=== PATIENT | female | born 1995 | race Caucasian/White ===

== ENCOUNTER 2023-07-21 03:41 | Emergency (ER) | payer OTHER, SELFPAY ==
[2023-07-21 03:42] VITALS: BP 149/86; PULSE 79; RESP 16; TEMP 36.6; O2SAT 97; BMI 41.6
--- NOTE | 2023-07-21 03:55 | EX.ED.DYSGE1 ---
HPI History of Present Illness Chief Complaint: Dental Informant: patient Onset/Context/Timing Onset: Hours (several) Context: Gradual Onset Timing: Continuous Narrative Narrative: Patient states she is having pain in her right face radiating back into her ear and a little bit into her head. No fevers or chills. This started gradually this evening. She is concerned it is potentially dental in etiology because earlier this past day, she had a dental cleaning done. It was uneventful and not painful. She presented 4 AM because she cannot sleep. She states her ear hurts a little. She denies any nausea or vomiting. She has had cold symptoms for the past week without dyspnea or fever/chills or severe body aches. This includes nasal congestion. She has been occasionally taking oral decongestants, and tonight she took ibuprofen and aspirin and Benadryl which did not help any of this so she came in. She has had some minor rhinorrhea but nothing that is purulent or bloody. [facility] Medical History Chronic neck and back pain Fatigue Shortness of breath Home Medications acetaminophen 325 mg capsule (Tylenol) 325 mg PO Q6H PRN 07/03/18 [History Last Taken Unknown] etonogestrel 0.12 mg-ethinyl estradiol 0.015 mg/24 hr vaginal ring (NuvaRing) 1 vag ring vaginal Q4W 07/03/18 [History Last Taken Unknown] lorazepam 0.5 mg tablet 0.5 mg PO DAILY 07/21/23 [History Last Taken Unknown] sertraline 100 mg tablet 200 mg PO DAILY 07/21/23 [History Last Taken Unknown] Allergy/AdvReac Type Severity Reaction Status Date / Time No Known Allergies Allergy Verified 07/21/23 03:47 Social History Smoking Status: Never smoker alcohol intake: current ROS ROS ED Constitutional Constitutional ED: Denies chills or fever(s) ENT ENT ED: Reports ear pain bilateral, nasal congestion and rhinorrhea; Denies sore throat Cardiovascular Cardiovascular: Denies chest pain or palpitations Respiratory/Chest Respiratory/Chest: Reports cough; Denies dyspnea Gastrointestinal Gastrointestinal: Denies abdominal pain, diarrhea, nausea or vomiting Genitourinary Genitourinary ED: Denies dysuria or hematuria Musculoskeletal Musculoskeletal: Denies myalgias or neck pain Integumentary Denies abscess or rash Neurologic Neurologic: Reports headache(s); Denies paresthesias or weakness Psychiatric Psychiatric: Denies depression or suicidal thoughts Endocrine Endocrinology: Denies polydipsia or polyuria EXAM Physical Exam Const Vital Signs: 07/21/23 03:42 Temperature 97.8 F Temperature Source Temporal Pulse Rate 79 Respiratory Rate 16 Blood Pressure 149/86 H Blood Pressure Mean 107 Pulse Ox 97 Oxygen Delivery Method Room Air Positive well nourished and well developed General Appearance ED: well developed and NAD HEENT Reports moist mucous membranes HEENT Narrative: Dentition and gingiva are normal and nontender. No trismus. No sublingual edema or tongue elevation. There is tenderness in the right maxillary sinus but not severely so. Normal on external inspection no asymmetry or swelling/abscess. I am not able to reproduce any tenderness intraorally. There is no periauricular lymphadenopathy, TMs and EACs bilaterally normal. No mastoid tenderness/swelling/erythema. No severe or asymmetric nasal turbinate edema, and no nasal purulent discharge. normocephalic and atraumatic Throat: Negative for posterior oropharynx abnormal Eyes PERRL and EOMs intact bilaterally Neck no lymphadenopathy, supple and no meningeal signs Resp normal respiratory effort and clear to auscultation bilaterally Cardio no murmurs Rate: regular rate Rhythm: regular rhythm Neuro oriented x3, CN's II-XII intact bilaterally and no sensory deficits noted Sensorium / Orientation: alert Motor Exam: strength 5/5 throughout Skin Lesions: no lesions Rashes: no rashes MDM MDM MDM Narrative Medical decision making narrative: I think the patient is having sinus pain. She is only been having symptoms for a few hours and there are no clinical findings to suggest this is acute bacterial sinusitis or that antibiotics will cure this. She is advised to attempt using nasal decongestants to unclog the exit for the maxillary sinus, and we discussed applying gentle positive pressure to try to help open the sinus and drainage which give her more immediate relief. If symptoms persist, she can follow-up with her doctor or return to the ER. Discharge Plan Triage Chief Complaint: Dental ED Provider: Ashwin Lemons Dx/Rx/DC Orders Clinical Impression: Viral URI, Pain of maxillary sinus Instructions: ED Sinus Headache Prescriptions: No Action NuvaRing 0.12-0.015 mg/24 hr ring 1 vag ring VAGINAL Q4W acetaminophen [Tylenol] 325 mg capsule 325 mg PO Q6H PRN sertraline 100 mg tablet 200 mg PO DAILY lorazepam 0.5 mg tablet 0.5 mg PO DAILY Primary Care Provider: Merrick Mai Referrals: Merrick Mai MD [Primary Care Provider] - 3-5 Days if not improving Activity Restrictions/Additional Instructions: After using nasal decongestant spray, you may hold your nose and apply gentle pressure until you feel your ears pop, hold this for a breath and often you can stent the sinuses open. This may need to be done repeatedly as needed. Do not use the decongestant spray more than 3 days in a row, up to every 12 hours. If the sinus congestion/pressure resulted from allergies, then using [id number] nasal fluticasone, which is brand-name Flonase or other names, can help but it does not work immediately since it is a steroid. Benadryl-type medications will not help with this, unless it is allergies. These medications only dry up secretions, they do not take away swelling like decongestants. Disposition Disposition: Home, Self Care
[2023-07-21] MEDS: Oxymetazoline 0.05% 1 SPRAY SPRAY.BTL 2 SPRAY NASAL (04:02)
== END 2023-07-21 04:13 | disposition home or self-care (01) ==
LOC: ED 04:12
PROVIDERS: Emergency Provider Emergency Medicine; PCP Family Medicine; Visit Provider Emergency Medicine
DX: J06.9 Acute upper respiratory infection, unspecified (principal); J34.89 Other specified disorders of nose and nasal sinuses
CPT/HCPCS: 99283

== ENCOUNTER → 2024-09-02 | Outpatient (CLI) | payer OTHER, SELFPAY ==
[2024-09-02 11:26] LABS: Absolute Lymphocyte Count 1.64 X10^3/uL (0.83-4.51); Absolute Neutrophil Count 3.8 X10^3/uL (2.0-7.7); Basophil# 0.07 X10^3/uL; Basophil% 1.1 % (0-1); Eosinophil# 0.16 X10^3/uL; Eosinophils% 2.5 % (0-5); Hematocrit 41.4 % (37-47); Lymphocyte # 1.64 X10^3/ul (0.83-4.51); Lymphocyte % 26.1 % (19-41); Mean Corp Hgb Conc 33.8 g/dL (32-36); Mean Corpuscular Hgb 27.5 pg (27.0-32.0); Mean Corpuscular Volume 81.2 fL (81-99); Mean Platelet Vol. 10.6 fl (6.2-12.0); Monocyte# 0.54 X10^3/uL; Monocyte% 8.6 % (0-10); NRBC Flagged by Analyzer 0 % (0-5); Neutrophil # 3.84 X10^3/uL (2.7-7.7); Neutrophil % 61.2 % (47-70); Platelet Count 372 K/mm3 (150-450); RBC Distribution Width CV 12.6 % (11.6-14.6); RBC Distribution Width SD 37.4 fl (35.1-43.9); White Blood Count 6.3 K/mm3 (4.4-11.0)
[2024-09-02 12:25] LABS: ALB/GLOB Ratio 1.7 RATIO (0.9-2.4); AST(SGOT) 16 U/L (<=31); Alanine Aminotransfer ALT/SGPT 12 U/L (<=34); Albumin, Serum 4.4 g/dL (3.5-5.0); Alkaline Phosphatase 74 U/L (35-104); Anion Gap 11 (5-15); BUN 10 mg/dL (4-19); BUN/Creat Ratio 13.4 RATIO (10-20); Calcium,Total 9.2 mg/dL (7.6-11.0); Carbon Dioxide 21.9 mmol/L (21.0-32.0); Chloride 108 mmol/L (98-108); Creatinine, Serum 0.73 mg/dL (0.70-1.20); EST Glomerular Filtration Rate 114 (>60); Globulin 2.6 g/dL (2.2-4.2); Glucose 101 mg/dL (70-99); Potassium 4.2 mmol/L (3.3-5.1); Sodium Level 141 mmol/L (133-145); Thyroid Stim Hormone (TSH) 0.079 uIU/mL (0.300-4.200); Total Bilirubin 0.22 mg/dL (0.00-1.30)
[2024-09-02 12:40] LABS: Cholesterol 176 mg/dL (<=200); High Density Lipoprotein 46 mg/dL; Low Density Lipoprotein Calc. 114 mg/dL; Triglycerides 84 mg/dL; Very Low Density Lipoprotein 17 mg/dL (5-40); cholesterol:hdl ratio screen 3.87
== END | disposition home or self-care (01) ==
LOC: LAB 10:42
PROVIDERS: PCP Family Medicine; Referring Provider Nurse Practitioner Family; Visit Provider Nurse Practitioner Family
DX: N97.9 Female infertility, unspecified (principal)
CPT/HCPCS: 36415; 80053; 80061; 84439; 84443; 85025

== ENCOUNTER → 2024-09-13 | Outpatient (CLI) | payer OTHER, SELFPAY ==
--- NOTE | 2024-09-13 16:29 | US_ITS ---
PROCEDURE: PELVIC W/ TRANSVAGINAL 09/13/2024 REASON FOR EXAM: INFERTILITY TECHNIQUE: Transabdominal and transvaginal pelvic ultrasound FINDINGS: Transabdominal and transvaginal imaging. The uterus measures 8.2 by 4.7 by 2.9 cm and appears within limits. 6 mm homogeneous appearing endometrial stripe. Small amount of fluid is seen within the endocervical canal. The right ovary measures 2.6 x 1.6 x 1.5 cm and appears within limits. Evidence of vascular flow is seen. Left ovary measures 4.7 x 2.8 x 1.9 cm and contains a couple of simple appearing cysts. Largest measures 2.5 x 1.6 x 1.6 cm. Evidence of ovarian vascular flow is seen. No evidence of adnexal mass. No free fluid seen. Bladder volume 756 cc. US/Pelvic w/ Transvaginal IMPRESSION: A couple of simple appearing cysts/follicles left ovary largest measures up to 2.5 cm. No free fluid seen. Reading Location: [id number]
== END | disposition home or self-care (01) ==
LOC: US 16:24
PROVIDERS: PCP Family Medicine; Referring Provider Nurse Practitioner Family; Visit Provider Nurse Practitioner Family
DX: N97.9 Female infertility, unspecified (principal)
CPT/HCPCS: 76830; 76856

== ENCOUNTER → 2024-09-20 | Outpatient (CLI) | payer OTHER, SELFPAY ==
[2024-09-21 11:07] LABS: Thyroid Stim Hormone (TSH) 0.185 uIU/mL (0.300-4.200)
[2024-09-22 04:07] LABS: PROGESTERONE 6.7 ng/mL (.)
== END | disposition home or self-care (01) ==
PROVIDERS: PCP Family Medicine; Referring Provider Nurse Practitioner Family; Visit Provider Nurse Practitioner Family
DX: Z13.29 Encounter for screening for other suspected endocrine disorder (principal); N97.9 Female infertility, unspecified
CPT/HCPCS: 36415; 84144; 84443

== ENCOUNTER 2024-10-27 22:47 | Emergency (ER) | payer OTHER, SELFPAY ==
[2024-10-27 22:47] VITALS: BP 133/88; PULSE 78; RESP 14; TEMP 36.6; O2SAT 98; BMI 41.6
--- NOTE | 2024-10-27 22:56 | ED.VIS.FEGU ---
HPI HPI - Female History of Present Illness Chief Complaint: PFSH PFSH Medical History PTSD (post-traumatic stress disorder) Depression Anxiety Chronic neck and back pain Fatigue Shortness of breath Home Medications ?Medication ?Instructions ?Recorded ?Last Taken ?Type acetaminophen 325 mg capsule 325 mg PO Q6H PRN pain 07/03/18 Unknown History (Tylenol) magnesium carb,citrate,oxide 500 mg PO DAILY 08/30/24 Unknown History (Magnesium Complex) Lactobacillus acidophilus 1 1,000 mmu cells PO QDAY 10/27/24 Unknown History billion cell capsule (Probiotic Gold Acidophilus) multivitamin no.47-iron fum 27 1 cap PO DAILY 10/27/24 Unknown History mg-folate no.1 1 mg-dha 300 mg capsule (PNV-DHA) Allergy/AdvReac Type Severity Reaction Status Date / Time No Known Allergies Allergy Verified 10/27/24 22:48 Social History adopted: No household members: spouse housing: house number of children: 0 current occupational status: employed current occupation: 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) pets and animals: Yes (Avoid litterbox) pets and animals: cat(s) and dog(s) history of recent travel: No sexually active: Yes Smoking Status: Never smoker alcohol intake: current alcohol intake frequency: holidays/special occasions only details: Not while substance use type: does not use diet: other well-balanced diet: daily or most days caffeine: Yes Type: coffee Number of servings: 1 eating out: rarely or never during the past year weight has: remained stable what type of physical activity do you participate in: walking frequency: 3-4 times per week duration: 30-45 minutes/day khadar/hoahaoism: None seatbelt use: always do you feel safe at home: Yes additional social history: Yoseph- . 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 States is about 8 weeks . She is a G 1 P 0. She states this began tonight. Denies blood thinner use REVIEW OF SYSTEMS: Pertinent positives: Vaginal bleeding Pertinent negatives: Abdominal pain PHYSICAL EXAM: Nursing triage notes reviewed, Vital signs reviewed Constitutional: please see [facility] HENT: MMM Eyes: Pupils equal round and reactive to light, Extraocular muscles intact Neck: No stridor, no JVD, full neck ROM Lungs: Clear to auscultation, No wheezing or rales. No increased work of breathing, no conversational dyspnea, no accessory muscle use, no nasal flaring. No respiratory distress noted Heart: Regular rate and rhythm, No murmurs, No rubs and No gallops, 2+ distal pulses (radial, femoral, posterior tibial) in all extremities Abdomen: Soft, there is no tenderness, rigidity, rebound or guarding, no obvious peritoneal signs, no palpable pulsatile abdominal masses, no auscultated abdominal bruit : No CVAT Extremities: No edema Neuro: No new focal neurological deficits, cranial nerves II through XII intact, 5/5 strength in all present extremities. Intact sensation to light touch in all present extremities, 2+ reflexes bilateral patella tendons. Skin: No rash or lesions noted MEDICAL DECISION MAKING: Chief Complaint: please see HPI External records reviewed: Reviewed prior imaging studies: Reviewed transvaginal ultrasound from 09/13/2024 it showed no evidence of at this time. Patient had an OB visit today with Dr. Steele. This visit noted she had a positive urine test. Factors affecting care: Infertility Social determinants of health: none History obtained from others: Significant other Consults: none [facility] Narrative: Patient was initially hemodynamically stable, afebrile and nontoxic-appearing. Abdominal exam was benign. I considered the following differential diagnosis: Single live intrauterine , toppers, miscarriage I obtained a broad lab and imaging workup to further determine if the patient was suffering from a life-threatening etiology. ALL IMAGES (IF OBTAINED) HAVE BEEN PERSONALLY REVIEWED AND INTERPRETED BY MYSELF. hCG Quant was positive consistent with early CBC without leukocytosis, severe anemia, no thrombocytopenia. BMP without evidence of significant electrolyte abnormalities, no anion gap, no acute kidney injury. Urinalysis shows no evidence of urinary inflammation suggestive of UTI O+ blood type no need for RhoGAM Transvaginal ultrasound showed a single live intrauterine with heartbeat 142 which is reassuring The synthesis of the patient's history, physical exam, labs images suggest third miscarriage Will give strict return precautions recommend OB follow-up. The patient and/or family, caregivers express understanding. The patient and/or family, caregivers agrees with the plan. Shared decision making: I will have a discussion with the patient and or visitors regarding risk/benefits of further testing or admission. They will be made aware of of the risk/benefits inherent in this decision they will be given the opportunity to voice understanding. Total critical care time today provided was at least 0 minutes. This excludes separately billable procedures. Critical care time (if documented) is secondary to the patient having high probability of clinically significant/life threatening deterioration in the patient's condition which required my urgent intervention. Impression: 1. Vaginal bleeding in 2. First trimester 3. Threatened miscarriage Dispo: Discharge home This note was generated with Pond[employer] dictation software. It may contain incorrect words, spelling, and punctuation that were not noted in review of the chart prior to signing. Lab Data Labs: Laboratory Results - last 24 hr 10/27/24 23:20 WBC 7.6 RBC 4.46 Hgb 12.4 Hct 36.9 L MCV 82.7 MCH 27.8 MCHC 33.6 RDW Std Deviation 40.0 RDW Coeff of Kyler 13.4 Plt Count 253 MPV 11.2 Immature Gran % (Auto) 0.400 Neut % (Auto) 55.1 Lymph % (Auto) 32.4 Kendall % (Auto) 9.1 Eos % (Auto) 2.1 Baso % (Auto) 0.9 Absolute Neuts (auto) 4.2 Absolute Lymphs (auto) 2.47 Nucleated RBC % 0 Sodium 138 Potassium 3.9 Chloride 106 Carbon Dioxide 19.2 L Anion Gap 13 BUN 9 Creatinine 0.68 L Estim Creat Clear Calc 164.26 Est GFR (MDRD) Non-Af 121 BUN/Creatinine Ratio 13.1 Glucose 93 Calcium 9.2 HCG, Quant 05671 H Urine Color Yellow Urine Clarity Clear Urine pH 6.5 Ur Specific [place] 1.010 Urine Protein Negative Urine Glucose (UA) Normal Urine Ketones Negative Urine Occult Blood 50 H Urine Nitrite Negative Urine Bilirubin Negative Urine Urobilinogen Normal Ur Leukocyte Esterase Negative Urine RBC 0 SEEN Urine WBC 0 SEEN Ur Squamous Epith Cells 0 SEEN Urine Bacteria 0 SEEN Urine Mucus 0 SEEN Blood Type O POSITIVE Radiography Diagnostic Testing: Clinical Impression(s) from Imaging Studies Obstetrics Ultrasound 10/27/24 22:59 IMPRESSION: Single live IUP approximate ultrasound age of 7 weeks by crown-rump length. Small implant bleed and small fluid within the cervical canal, correlate for bleeding. Progress imaging as clinically determined Reading Location: [place] [id number] Discharge Plan Triage Chief Complaint: ED Provider: Gustavo Lopez Dx/Rx/DC Orders Clinical Impression: First trimester bleeding Instructions: Miscarriage Threatened Prescriptions: No Action acetaminophen [Tylenol] 325 mg capsule 325 mg PO Q6H PRN (Reason: pain) Magnesium Complex 300 mg magnesium tablet 500 mg PO DAILY PNV-DHA 27 mg iron-1 mg -300 mg capsule 1 cap PO DAILY Probiotic Gold Acidophilus 1 billion cell capsule 1,000 mmu cells PO QDAY Primary Care Provider: Merrick Mai Referrals: Alesia Steele MD [Med Staff - Active Staff] - Activity Restrictions/Additional Instructions: Thank you for trusting us with your care today! Your labs and images are reassuring. Your ultrasound showed a single live intrauterine which is very reassuring at this time. Had a normal heart rate of 142. Please take Tylenol (2 pills, 650 mg), every 6 hours as needed for pain and fever control. Please return to the emergency department if your symptoms change or worsen. Specifically for severe abdominal pain, heavy bleeding, passage of any tissue or fluid. Please follow with your primary care physician for further outpatient evaluation and management. Print Language: Micronesian Disposition Disposition: Home, Self Care Discharge Date/Time: 10/28/24 01:46
--- NOTE | 2024-10-27 22:59 | US_ITS ---
PROCEDURE: TRANSVAGINAL W/PREG US 10/27/2024 REASON FOR EXAM: EARLY , VAGINAL BLEEDING TECHNIQUE: TRANSVAGINAL W/PREG US COMPARISON: 09/14/2024 FINDINGS: Within the uterine cavity, there is a gestational sac, yolk sac, and pole, approximate ultrasound age of 7 weeks by crown-rump length. 142 beats per minute heart tones. Small implant bleed. Small fluid within the cervical canal. The right ovary measures 2 x 2 x 2 cm. The left ovary measures 2 x 3 x 6 cm. There is a 3 cm corpus luteal cyst. US/Transvaginal w/Preg US IMPRESSION: Single live IUP approximate ultrasound age of 7 weeks by crown-rump length. Small implant bleed and small fluid within the cervical canal, correlate for bl eeding. Progress imaging as clinically determined Reading Location: [place] [id number]
[2024-10-27 23:33] LABS: Bacteria 0 SEEN /hpf (None Seen); Mucous, Urine 0 SEEN /hpf (<or=2+); Red Blood Cells-Urine 0 SEEN /hpf (0-5); Squamous Epithelial Cells - UA 0 SEEN /hpf (5-10); White Blood Cells 0 SEEN /hpf (0-5)
--- OUTSIDE RECORDS SUMMARY | 2024-10-27 23:42 | XMS RPT_ITS | CCD ---
Author Organization [facility] Team Providers Care Lieutenant Fire Fighter Name Role Phone Carla Clemens Primary Care Provider STEVENSON, UC Unavailable Unavailable Pending Provider Unavailable Unavailable Carla Clemens Primary Care Provider Unavailable Primary Care Provider Unavailabl e Carla Clemens Primary Care Provider Unavailab salazar Mai MD, Merrick Johnson Primary Care Provider Dr. Merrick Mai MD Primary Care Provider [phone] Dr. Merrick Mai MD Referring Provider Roxie TOOL MAINTENANCE TECHNICIAN-CBrittany Attending Provider Roxie TOOL MAINTENANCE TECHNICIAN-CBrittany Referring Provider Pau, Merrick Primary Care Unavailable Kimberleeman Brittany Attending Unavailable Barkman, Brittany Referring Unavailable Barkman, Brittany Referring Unavailable Pau, Merrick Primary Care Unavailable Tenzin Faustinmen Attending Unavailable Pau, Merrick Primary Care Unavailable Barkman, Brittany Attending Unavailable Barkman, Brittany Referring Unavailable Pau, Merrick Primary Care Unavailable Pau, Merrick Referring Unavailable Barkman, Brittany Attending Unavailable Pau, Merrick Primary Care Unavailable Pau, Merrick Referring Unavailable Alesia Steele Attending Unavailable Dr. Alesia Steele MD Attending Provider Medications Current Medications Medication Drug Class(es) Dates Sig (Normalized) Sig (Original) acetaminophen 325 mg oral capsule (5 sources) Start: 07-03-2018 take 1 capsule by mouth every six hours as needed Acetaminophen (Tylenol) 325 mg capsule Active 325 mg PO EVERY 6 HOURS as needed July 03, 2018 1:00am diazePAM 5 mg oral tablet (1 source) Benzodiazepine Start: 03-17-2021 End: 03-24-2021 diazePAM (VALIUM) 5 mg tablet Indications: pre MRI Take 1 tablet 60 minutes prior to MRI, may repeat 1 tablet right before MRI/during if needed 2 tablet 0 03/17/2021 03/24/2021 Active Comment on above: Take 1 tablet 60 min utes prior to MRI, may repeat 1 tablet right before MRI/during if needed diphenhydrAMINE hydrochloride 25 mg oral capsule (1 source) Histamine-1 Receptor Antagonist Start: 10-18-2019 End: 10-28-2019 take 1 capsule by mouth every six hours as needed for sleep diphenhydrAMINE (BENADRYL) 25 MG capsule Take 1 capsule by mouth every 6 hours as needed for Itching, Allergies or Sleep 40 capsule 0 10/18/2019 10/28/2019 Active famotidine 20 mg oral tablet (2 sources) Histamine-2 Receptor Antagonist Start: 10-18-2019 End: 10-23-2019 famotidine (PEPCID) tablet 20 mg lactobacillus acidophilus [id number] unt oral capsule (1 source) Start: 10-27-2024 take 1 capsule by mouth once daily Lactobacillus Acidophilus (Probiotic Gold Acidophilus) 1 billion cell capsule Active 1000 NMA PO daily October 27, 2024 12:00am Magnesium Carb,Citrate,Oxide (Magnesium Complex) 300 mg magnesium tablet (4 sources) Start: 08-30-2024 Magnesium Carb,Citrate,Oxide (Magnesium Complex) 300 mg magnesium tablet Active mg PO August 30, 2024 12:00am Multivit 85-Adjm-Gelfuu 1-Dha (Pnv-Dha) 27 mg iron-1 mg -300 mg capsule (1 source) Start: 10-27-2024 Multivit 24-Jzsv-Ldnkfu 1-Dha (Pnv-Dha) 27 mg iron-1 mg -300 mg capsule Active NMA PO October 27, 2024 12:00am Completed/Discontinued Medications Medication Drug Class(es) Dates Sig (Normalized) Sig (Original) amoxicillin 875 mg / clavulanate 125 mg oral tablet (5 sources) Penicillin-class Antibacterial Start: 07-03-2018 End: 07-13-2018 Amoxicillin-Pot Clavulanate 875-125 mg tablet Discontinued 1 {tbl} PO Q12H 20 July 03, 2018 1:00am July 12, 2018 12:00am July 13, 2018 12:08am Start: 07-03-2018 End: 07-13-2018 take 1 tablet by mouth every twelve hours Amoxicillin-Pot Clavulanate Discontinued 1 TABLET PO Q12H 20 July 03, 2018 1:00am July 13, 2018 12:08am aspirin/acetaminophen/caffei ne (EXCEDRIN EXTRA STRENGTH ORAL) (3 sources) aspirin/acetamin ophen/caffeine (EXCEDRIN EXTRA STRENGTH ORAL) Take by mouth. 0 Active Comment on above: Take by mouth. celecoxib 200 mg oral capsul e (3 sources) Nonsteroidal Anti-inflamma tory Drug take 1 capsule by mouth twice daily celecoxib (CELEBREX) 200 mg capsule Take 200 mg by mouth twice daily. 0 Active Comment on above: Take 200 mg by mouth twice daily. docosahexaenoic acid 200 mg oral capsule (4 sources) S t a r t : 0 4 - 3 0 - 2 0 2 5 E n d : 0 6 - 2 7 - 2 0 2 5 Docosahexaenoic Acid (Prenat al Dha) 200 mg capsule Discontinued mg PO August 30, 2024 12:00am October 27, 2024 8:18am 21 day ethinyl estradiol 0.742095 mg/hr / etonogestrel 0.005 mg/hr vaginal system (5 sources) Progestin, Estrogen S t a r t : 0 3 - 0 3 - 2 0 1 9 E n d : 0 4 - 3 0 - 2 0 2 5 Etonogestrel-Ethinyl Estradi ol (Nuvaring) 0.12-0.015 mg/24 hr ring Discontinued 1 NMA VAGINAL every 4 weeks July 03, 2018 1:00am August 30, 2024 2:57pm Start: 07-03-2018 Etonogestrel-E thinyl Estradiol (Nuvaring) 0.12-0.015 mg/24 hr ring Active 1 VAG RING VAGINAL every 4 weeks July 03, 2018 1:00am gabapentin 300 mg oral capsule (3 sources) Anti-epileptic Agent take 1 capsule by mouth twice daily gabapentin (NEURONTIN) 300 mg capsule Take 300 mg by mouth twice daily. 0 Active Comment on above: Take 300 mg by mouth twice daily. lidocaine 0.05 mg/mg medicated patch (3 sources) Antiarrhythmic, Amide Local Anesthetic apply 1 dose transdermal route every twenty-four hours lidocaine (LIDODERM) 5 % Apply 1 Patch as directed every 24 hours. 0 Active Comment on above: Apply 1 Patch as dir ected every 24 hours. LORazepam 0.5 mg oral tablet (5 sources) Benzodiazepine Start: 07-21-19 End: 10-28-19 take 1 tablet by mouth once daily Lorazepam 0.5 mg tablet Discontinued 0.5 mg PO DAILY July 21, 2023 12:00am October 27, 2024 8:18am predniSONE 20 mg oral tablet (4 sources) Start: 10-18-19 End: 10-18-19 predniSONE (DELTASONE) tablet 60 mg Start: 10-18-2019 take 3 tablets by mo uth once daily predniSONE (DELTASONE) 20 MG tablet 3 tabs PO daily for 4 days - Start 10/19/2019 12 tablet 0 10/18/2019 Active sertraline 100 mg oral tablet (8 sources) Serotonin Reuptake Inhibitor Start: 07-21-2023 End: 08-30-2024 take 2 tablets by mouth once daily Sertraline 100 mg tablet Discontinued 200 mg PO DAILY July 21, 2023 12:00am August 30, 2024 2:58pm Start: 07-21-2023 take 200 mg by mouth once halley y Sertraline Active 200 MG PO DAILY July 21, 2023 12:00am take 0.5 tablet by m outh twice daily sertraline (ZOLOFT) 100 mg tablet Take 100 mg by mouth twice daily. 0.5 tablets bid 0 Active Comment on above: Take 100 mg by mouth twice daily. 0.5 tablets bid Problems Problem Classification Problem Date Documented Da te Episodic/Chronic Allergic reactions (1 source) Allergic reaction; Translations: [Allergic reaction, initial encounter] Episodic Anxiety disorders (1 source) Claustrophobia; Translations: [Claustrophobia] Chronic Female infertility (9 sources) Female infertility; Translations: [Female infertility, unspecified] Onset: 09-19-2024 08-30-2024 Chronic Other screening for suspected conditions (not mental disorders or infectious disease) (1 source) Encounter for screening for other suspected endocrine disorder; Translations: [Encounter for screening for other suspected endocrine disorder] Onset: 10-02-2024 Episodic Other upper respiratory disease (5 sources) Maxillary sinus pain; Translations: [Other specified disorders of nose and nasal sinuses] 07-21-2023 Episodic Other upper respiratory infections (5 sources) Viral upper respiratory tract infection; Translations: [Acute upper respiratory infection, unspecified] 07-21-2023 Episodic Spondylosis; intervertebral disc disorders; other back problems (5 sources) Spinal stenosis in cervical region; Translations: [Spinal stenosis, cervical region] Onset: 02-12-2021 Episodic Results Test Name Value Interpretation Reference Range Facility PROGESTERONE 4317on 09-23-19 25 PROGESTERONE 6.7 ng/mL Normal . [facility] Comment on above: Order Comment: N day 21 lab Result Comment: Foll icular phase 0.1 - 0.9 Luteal phase 1.8 - 23.9 Ovulation phase 0.1 - 12.0 First trimester 11.0 - 44.3 Second trimester 25.4 - 83.3 Third trimester 58.7 - 214.0 Postmenopausal 0.0 - 0.1 Performed at: [address] [id number] Aircraft Engine Dismantler: Boni Lopez PhD, Phone: [phone] Performed By: #### L 648.2975, L595.7612 #### [facility] [address], [place], [id number] Thyroid Stim Hormone (TSH)on 09-21-2024 TSH 0.185 uIU/mL Low 0.300-4.200 [facility] Comment on above: Performed By: #### L 501.9520, [id number] #### [facility] [address], [place], [id number] TSH DL <= 0.005 mIU/L QnOrde red By: Brittany Faustin on 09-20-2024 TSH Qn 0.185 uIU/mL Low 0.300-4.200 [facility] Pelvic w/ Transvaginalon Pelvic w/ Transvaginal [facility] [address] [place], [place] [id number] Pelvic w/ Transvaginal MR#: [id number] Acct: [id number] Name: MARQUIS BARBER Rep #: [id number] : 1995 F 28 From: Erick Sepulveda MD PCP: Dr. Merrick Mai MD Status: REG CLI Study: Pelvic w/ Transvaginal Date of Exam: 09/13/24 Exam# [id number] Ordering Dr: Brittany Faustin PROCEDURE: PELVIC W/ TRANSVAGINAL 09/13/2024 REASON FOR EXAM: INFERTILITY TECHNIQUE: Transabdominal and transvaginal pelvic ultrasound FINDINGS: Transabdominal and transvaginal imaging. The uterus measures 8.2 by 4.7 by 2.9 cm and appears within limits. 6 mm homogeneous appearing endometrial stripe. Small amount of fluid is seen within the endocervical canal. The right ovary measures 2.6 x 1.6 x 1.5 cm and appears within limits. Evidence of vascular flow is seen. Left ovary measures 4.7 x 2.8 x 1.9 cm and contains a couple of simple appearing cysts. Largest measures 2.5 x 1.6 x 1.6 cm. Evidence of ovarian vascular flow is seen. No evidence of adnexal mass. No free fluid seen. Bladder volume 756 cc. US/Pelvic w/ Transvaginal IMPRESSION: A couple of simple appearing cysts/follicles left ovary largest measures up to 2.5 cm. No free fluid seen. Reading Location: [facility] CC: SANDEE Faustin; Dr. Merrick Mai MD Diagnostic Assistant: Signed Normal [facility] Absolute lymphocyte countOrd ered By: Brittany Faustin on 09-02-2024 Lymphocytes Auto (Unsp spec) [#/Vol] 1.64 10*3/uL 0.83-4.51 [facility] Absolute neutrophil countOrd ered By: Brittany Faustin on 09-02-2024 Neutrophils (Bld) [#/Vol] 3.8 10*3/uL 2.0-7.7 [facility] Anion gap in Serum or Plasma Ordered By: Brittany Faustin on 09-02-2024 Anion gap [Moles/Vol] 11 mmol/L 5-15 [facility] Automated lymphocyte count a s percentage of total leukocytesOrdered By: Brittany Faustin on 09-02-2024 Lymphocytes/100 WBC Auto (Unsp spec) 26.1 % 19-41 [facility] BUN/creatinine ratioOrdered By: Brittany Faustin on 09-02-2024 Urea nitrogen/Creatinine [Mass ratio] 13.4 mg/mg 10-20 [facility] Basophil percentageOrdered B y: Brittany Faustin on 09-02-2024 Basophils/100 WBC (Bld) 1.1 % High 0-[address] [facility] Bilirubin, totalOrdered By: Brittany Faustin on 09-02-2024 Bilirubin [Mass/Vol] 0.22 mg/dL 0.00-1.30 [facility] CBC W/Diff, Automatedon Absolute Lymph 1.64 X10 3/uL Normal 0.83-4.51 [facility] Comment on above: Performed By: #### L 500.4100, L900.0111, L100.0100, L500.4050, L506.0400, L501.9520 #### [facility] [address] [place], [address] Absolute Neut 3.8 X10 3/uL Normal 2.0-7.7 [facility] Comment on above: Performed By: #### L 500.4100, L900.0111, L100.0100, L500.4050, L506.0400, L501.9520 #### [facility] [address] [place], [address] Basophils/100 WBC (Bld) 1.1 % High 0-[address] [facility] Comment on above: Performed By: #### L 500.4100, L900.0111, L100.0100, L500.4050, L506.0400, L501.9520 #### [facility] [address] [place], [address] Eosinophils/100 WBC (Bld) 2.5 % Normal 0-5 [facility] Comment on above: Performed By: #### L 500.4100, L900.0111, L100.0100, L500.4050, L506.0400, L501.9520 #### [facility] [address] [place], [address] Erythrocyte distribution width (RBC) [Ratio] 12.6 % Normal 11.6-14.6 [facility] Comment on above: Performed By: #### L 500.4100, L900.0111, L100.0100, L500.4050, L506.0400, L501.9520 #### [facility] [address] [place], [address] Hematocrit (Bld) [Volume fraction] 41.4 % Normal 37-47 [facility] Comment on above: Performed By: #### L 500.4100, L900.0111, L100.0100, L500.4050, L506.0400, L501.9520 #### [facility] [address] [place], [address] Hemoglobin (Bld) [Mass/Vol] 14.0 g/dL Normal 12.0-15.0 [facility] Comment on above: Performed By: #### L 500.4100, L900.0111, L100.0100, L500.4050, L506.0400, L501.9520 #### [facility] [address] [place], [address] IG% 0.500 Normal 0.0-0.9 [facility] Comment on above: Result Comment: IG% - Immature Granulocytes (promyelocytes, myelocytes and metamyelocytes) > 1% indicates that a LEFT SHIFT is Present. Performed By: #### L 500.4100, L900.0111, L100.0100, L500.4050, L506.0400, L501.9520 #### [facility] [address] [place], [address] Lymphocytes/100 WBC (Bld) 26.1 % Normal 19-41 [facility] Comment on above: Performed By: #### L 500.4100, L900.0111, L100.0100, L500.4050, L506.0400, L501.9520 #### [facility] [address] [place], [address] MCH (RBC) [Entitic mass] 27.5 pg Normal 27.0-32.0 [facility] Comment on above: Performed By: #### L 500.4100, L900.0111, L100.0100, L500.4050, L506.0400, L501.9520 #### [facility] [address] [place], [address] MCHC (RBC) [Mass/Vol] 33.8 g/dL Normal 32-36 [facility] Comment on above: Performed By: #### L 500.4100, L900.0111, L100.0100, L500.4050, L506.0400, L501.9520 #### [facility] [address] [place], [address] MCV (RBC) [Entitic vol] 81.2 fL Normal 81-99 [facility] Comment on above: Performed By: #### L 500.4100, L900.0111, L100.0100, L500.4050, L506.0400, L501.9520 #### [facility] [address] [place], [address] Monocytes/100 WBC (Bld) 8.6 % Normal 0-[address] [facility] Comment on above: Performed By: #### L 500.4100, L900.0111, L100.0100, L500.4050, L506.0400, L501.9520 #### [facility] [address] [place], [address] Neutrophils/100 WBC (Bld) 61.2 % Normal 47-70 [facility] Comment on above: Performed By: #### L 500.4100, L900.0111, L100.0100, L500.4050, L506.0400, L501.9520 #### [facility] [address] [place], [address] Nucleated RBC (Bld) [#/Vol] 0 10*3/uL Normal 0-5 [facility] Comment on above: Performed By: #### L 500.4100, L900.0111, L100.0100, L500.4050, L506.0400, L501.9520 #### [facility] [address] [place], [address] Platelet mean volume (Bld) [Entitic vol] 10.6 fL Normal 6.2-12.0 [facility] Comment on above: Performed By: #### L 500.4100, L900.0111, L100.0100, L500.4050, L506.0400, L501.9520 #### [facility] [address] [place], [address] Platelets (Bld) [#/Vol] 372 10*3/uL Normal 150-450 [facility] Comment on above: Performed By: #### L 500.4100, L900.0111, L100.0100, L500.4050, L506.0400, L501.9520 #### [facility] [address] [place], [address] RBC (Bld) [#/Vol] 5.10 10*6/uL Normal 4.2-5.4 [facility] Comment on above: Performed By: #### L 500.4100, L900.0111, L100.0100, L500.4050, L506.0400, L501.9520 #### [facility] [address] [place], [address] RDW SD 37.4 fl Normal 35.1-43.9 [facility] Comment on above: Performed By: #### L 500.4100, L900.0111, L100.0100, L500.4050, L506.0400, L501.9520 #### [facility] [address] [place], [address] WBC (Bld) [#/Vol] 6.3 10*3/uL Normal 4.4-11.0 [facility] Comment on above: Performed By: #### L 500.4100, L900.0111, L100.0100, L500.4050, L506.0400, L501.9520 #### [facility] [address] [place], [address] Calculated very low density lipoprotein (VLDL) cholesterol measurementOrdered By: Brittany Faustin on 09-02-2024 Calculated very low density lipoprotein (VLDL) cholesterol measurement 17 mg/dL 5-40 [facility] Carbon dioxide, total [Moles /volume] in Central venous bloodOrdered By: Brittany Faustin on 09-02-2024 CO2 [Moles/Vol] 21.9 mmol/L 21.0-32.0 [facility] Chloride assayOrdered By: Peyton Faustin on 09-02-2024 Chloride [Moles/Vol] 108 mmol/L 98-108 [facility] Comprehensive Metabolic Prof ilon 09-02-2024 Albumin [Mass/Vol] 4.4 g/dL Normal 3.5-5.0 [facility] Comment on above: Order Comment: ovari an reserve Performed By: #### L 500.4100, L900.0111, L100.0100, L500.4050, L506.0400, L501.9520 #### [facility] [address] [place], [address] Albumin/Globulin [Mass ratio] 1.7 {ratio} Normal 0.9-2.4 [facility] Comment on above: Order Comment: ovari an reserve Performed By: #### L 500.4100, L900.0111, L100.0100, L500.4050, L506.0400, L501.9520 #### [facility] [address] [place], [address] ALK PHOS 74 U/L Normal 35-104 [facility] Comment on above: Order Comment: ovari an reserve Performed By: #### L 500.4100, L900.0111, L100.0100, L500.4050, L506.0400, L501.9520 #### [facility] [address] [place], [address] ALT [Catalytic activity/Vol] 12 U/L Normal <=34 [facility] Comment on above: Order Comment: ovari an reserve Performed By: #### L 500.4100, L900.0111, L100.0100, L500.4050, L506.0400, L501.9520 #### [facility] [address] [place], [address] AST [Catalytic activity/Vol] 16 U/L Normal <=31 [facility] Comment on above: Order Comment: ovari an reserve Performed By: #### L 500.4100, L900.0111, L100.0100, L500.4050, L506.0400, L501.9520 #### [facility] [address] [place], [address] Bilirubin [Mass/Vol] 0.22 mg/dL Normal 0.00-1.30 [facility] Comment on above: Order Comment: ovari an reserve Performed By: #### L 500.4100, L900.0111, L100.0100, L500.4050, L506.0400, L501.9520 #### [facility] [address] [place], [address] BUN/CRE 13.4 RATIO Normal 10-20 [facility] Comment on above: Order Comment: ovari an reserve Performed By: #### L 500.4100, L900.0111, L100.0100, L500.4050, L506.0400, L501.9520 #### [facility] [address] [place], [address] Calcium [Mass/Vol] 9.2 mg/dL Normal 7.6-11.0 [facility] Comment on above: Order Comment: ovari an reserve Performed By: #### L 500.4100, L900.0111, L100.0100, L500.4050, L506.0400, L501.9520 #### [facility] [address] [place], [address] Chloride [Moles/Vol] 108 mmol/L Normal 98-108 [facility] Comment on above: Order Comment: ovari an reserve Performed By: #### L 500.4100, L900.0111, L100.0100, L500.4050, L506.0400, L501.9520 #### [facility] [address] [place], [address] CO2 [Moles/Vol] 21.9 mmol/L Normal 21.0-32.0 [facility] Comment on above: Order Comment: ovari an reserve Performed By: #### L 500.4100, L900.0111, L100.0100, L500.4050, L506.0400, L501.9520 #### [facility] [address] [place], [address] Creatinine [Mass/Vol] 0.73 mg/dL Normal 0.70-1.20 [facility] Comment on above: Order Comment: ovari an reserve Performed By: #### L 500.4100, L900.0111, L100.0100, L500.4050, L506.0400, L501.9520 #### [facility] [address] [place], [address] GAP 11 Normal 5-15 [facility] Comment on above: Order Comment: ovari an reserve Performed By: #### L 500.4100, L900.0111, L100.0100, L500.4050, L506.0400, L501.9520 #### [facility] [address] [place], [address] GFR/1.73 sq M.predicted among non-blacks MDRD (S/P/Bld) [Vol rate/Area] 114 mL/min/{1.73_m2} Normal >60 [facility] Comment on above: Order Comment: ovari an reserve Result Comment: mL/m in/1.73m2 CKD-EPI Creatinine Equation (2020) Performed By: #### L 500.4100, L900.0111, L100.0100, L500.4050, L506.0400, L501.9520 #### [facility] [address] [place], [address] Globulin (S) [Mass/Vol] 2.6 g/dL Normal 2.2-4.2 [facility] Comment on above: Order Comment: ovari an reserve Performed By: #### L 500.4100, L900.0111, L100.0100, L500.4050, L506.0400, L501.9520 #### [facility] [address] [place], [address] Glucose [Mass/Vol] 101 mg/dL High 70-99 [facility] Comment on above: Order Comment: ovari an reserve Performed By: #### L 500.4100, L900.0111, L100.0100, L500.4050, L506.0400, L501.9520 #### [facility] [address] [place], [address] Potassium [Moles/Vol] 4.2 mmol/L Normal 3.3-5.1 [facility] Comment on above: Order Comment: ovari an reserve Performed By: #### L 500.4100, L900.0111, L100.0100, L500.4050, L506.0400, L501.9520 #### [facility] [address] [place], [address] Sodium [Moles/Vol] 141 mmol/L Normal 133-145 [facility] Comment on above: Order Comment: ovari an reserve Performed By: #### L 500.4100, L900.0111, L100.0100, L500.4050, L506.0400, L501.9520 #### [facility] [address] [place], [address] T PROT 7.0 g/dL Normal 5.9-8.4 [facility] Comment on above: Order Comment: ovari an reserve Performed By: #### L 500.4100, L900.0111, L100.0100, L500.4050, L506.0400, L501.9520 #### [facility] [address] [place], [address] Urea nitrogen [Mass/Vol] 10 mg/dL Normal 4-19 [facility] Comment on above: Order Comment: ovari an reserve Performed By: #### L 500.4100, L900.0111, L100.0100, L500.4050, L506.0400, L501.9520 #### [facility] [address] [place], [address] Eosinophil percentageOrdered By: Brittany Faustin on 09-02-2024 Eosinophils/100 WBC (Bld) 2.5 % 0-5 [facility] Erythrocyte distribution wid th ratioOrdered By: Brittany Faustin on 09-02-2024 Erythrocyte distribution width (RBC) [Ratio] 12.6 % 11.6-14.6 [facility] Erythrocyte distribution wid th standard deviationOrdered By: Brittany Faustin on 09-02-2024 Erythrocyte distribution width (RBC) [Ratio] 37.4 fl 35.1-43.9 [facility] Glomerular filtration rate ( GFR) estimation/1.73 sq m using serum, plasma, or whole bOrdered By: Brittany Faustin on 09-02-2024 GFR/1.73 sq M.predicted among non-blacks MDRD (S/P/Bld) [Vol rate/Area] 114 mL/min/{1.73_m2} >60 [facility] Comment on above: mL/min/1.73m2 CKD-EP I Creatinine Equation (2020) Hematocrit Auto (Bld) [Volum e fraction]Ordered By: Brittany Faustin on 09-02-2024 Hematocrit (Bld) [Volume fraction] 41.4 % 37-47 [facility] Hemoglobin measurementOrdere d By: Brittany Faustin on 09-02-2024 Hemoglobin (Bld) [Mass/Vol] 14.0 g/dL 12.0-15.0 [facility] Immature granulocytes/100 WB C Auto (Bld)Ordered By: Brittany Faustin on 09-02-2024 Immature granulocytes/100 WBC (Bld) 0.500 % 0.0-0.9 [facility] Comment on above: IG% - Immature Granu locytes (promyelocytes, myelocytes and metamyelocytes) > 1% indicates that a LEFT SHIFT is Present. L900.0111on 09-02-2024 REPROSOURCE SEE SCANNED REPORT Normal [facility] Comment on above: Order Comment: Comme nts: ovarian reserve Performed By: #### L 500.4100, L900.0111, L100.0100, L500.4050, L506.0400, L501.9520 #### [facility] [address] [place], [address] LDL calc ser/plasOrdered By: Brittany Faustin on 09-02-2024 Cholesterol in LDL [Mass/Vol] 114 mg/dL [facility] Comment on above: Qyihhjyial=239-427 m g/dL & Higher Uxff=130 mg/dL or greater Laboratory - Chemistry and C hemistry - challengeOrdered By: Brittany Faustin on 09-02-2024 AST [Catalytic activity/Vol] 16 U/L <32 [facility] Lipid Profileon 09-02-2024 CHOL:HDL 3.87 Normal [facility] Comment on above: Performed By: #### L 500.4100, L900.0111, L100.0100, L500.4050, L506.0400, L501.9520 #### [facility] [address] [place], [address] Cholesterol [Mass/Vol] 176 mg/dL Normal <=200 [facility] Comment on above: Result Comment: Chol esterol level, Desirable <200 mg/dL Borderline high cholesterol 200-239 mg/dL High cholesterol >=240 mg/dL Recommendations of the NCEP Adult Treatment Panel for the following risk-cutoff thresholds for the [place] population. Performed By: #### L 500.4100, L900.0111, L100.0100, L500.4050, L506.0400, L501.9520 #### [facility] [address] [place], [address] Cholesterol in HDL [Mass/Vol] 46 mg/dL Normal [facility] Comment on above: Result Comment: Dodie onal Cholesterol Education Program (NCEP) guidelines: <40 mg/dL: Low HDL-cholesterol (major risk factor for CHD) >= 60 mg/dL: High HDL-cholesterol (negative risk factor for CHD) HDL-cholesterol is affected by a number of factors, e.g. smoking, exercise, hormones, sex and age. Performed By: #### L 500.4100, L900.0111, L100.0100, L500.4050, L506.0400, L501.9520 #### [facility] [address] [place], [address] Cholesterol in LDL [Mass/Vol] 114 mg/dL Normal [facility] Comment on above: Result Comment: Bord zlqazi=039-858 mg/dL Higher Nufk=127 mg/dL or greater Performed By: #### L 500.4100, L900.0111, L100.0100, L500.4050, L506.0400, L501.9520 #### [facility] [address] [place], [address] Cholesterol in VLDL [Mass/Vol] 17 mg/dL Normal 5-40 [facility] Comment on above: Performed By: #### L 500.4100, L900.0111, L100.0100, L500.4050, L506.0400, L501.9520 #### [facility] [address] [place], [address] Triglyceride [Mass/Vol] 84 mg/dL Normal [facility] Comment on above: Result Comment: The drugs N-Acetylcysteine and Metamizole may falsely depress this assay. Normal range: <150 mg/dL Borderline High: 150-199 mg/dL High: 200-499 mg/dL Very High: >500 mg/dL Performed By: #### L 500.4100, L900.0111, L100.0100, L500.4050, L506.0400, L501.9520 #### [facility] [address] [place], [address] MCV (mean corpuscular volume ) determinationOrdered By: Brittany Faustin on 09-02-2024 MCV (RBC) [Entitic vol] 81.2 fL 81-99 [facility] Mean corpuscular hemoglobin (MCH) determinationOrdered By: Brittany Faustin on 09-02-2024 MCH (RBC) [Entitic mass] 27.5 pg 27.0-32.0 [facility] Mean corpuscular hemoglobin concentration (MCHC) determinationOrdered By: Brittany Faustin on 09-02-2024 MCHC (RBC) [Mass/Vol] 33.8 g/dL 32-36 [facility] Mean platelet volume determi nationOrdered By: Brittany Faustin on 09-02-2024 Platelet mean volume (Bld) [Entitic vol] 10.6 fL 6.2-12.0 [facility] Monocyte percentageOrdered B y: Brittany Faustin on 09-02-2024 Monocytes/100 WBC (Bld) 8.6 % 0-[address] [facility] Neutrophil percentageOrdered By: Brittany Faustin on 09-02-2024 Neutrophils/100 WBC (Bld) 61.2 % 47-70 [facility] No Panel InformationOrdered By: Brittany Faustin on 09-02-2024 Miscellaneous Test Comment SEE SCANNED REPORT [facility] Nucleated red blood cell per centageOrdered By: Brittany Faustin on 09-02-2024 Nucleated RBC/100 WBC (Bld) [Ratio] 0 % 0-5 [facility] Platelet countOrdered By: Peyton Faustin on 09-02-2024 Platelets (Bld) [#/Vol] 372 10*3/uL 150-450 [facility] Potassium measurement (mass/ volume)Ordered By: Brittany Faustin on 09-02-2024 Potassium (Unsp spec) [Mass/Vol] 4.2 mmol/L 3.3-5.1 [facility] RBC Auto (Bld) [#/Vol]Ordere d By: Brittany Faustin on 09-02-2024 RBC (Bld) [#/Vol] 5.10 10*6/uL 4.2-5.4 [facility] Screening total cholesterol/ high density lipoprotein (HDL) cholesterol ratioOrdered By: Brittany Faustin on 09-02-2024 Cholesterol.total/Choles terol in HDL [Mass ratio] 3.87 {ratio} [facility] Serum creatinine measurement (mass/volume)Ordered By: Brittany Faustin on 09-02-2024 Creatinine [Mass/Vol] 0.73 mg/dL 0.70-1.20 [facility] Serum globulin measurementOr dered By: Brittany Faustin on 09-02-2024 Globulin (S) [Mass/Vol] 2.6 g/dL 2.2-4.[address] [facility] Serum glucose measurement (m ass/volume)Ordered By: Brittany Faustin on 09-02-2024 Glucose [Mass/Vol] 101 mg/dL High 70-99 [facility] Serum or plasma alanine arias otransferase (ALT) measurementOrdered By: Brittany Faustin on 09-02-2024 ALT [Catalytic activity/Vol] 12 U/L <35 [facility] Serum or plasma albumin ayesha urement (mass/volume)Ordered By: Brittany Faustin on 09-02-2024 Albumin [Mass/Vol] 4.4 g/dL 3.5-5.0 [facility] Serum or plasma albumin/glob ulin mass ratioOrdered By: Brittany Faustin on 09-02-2024 Albumin/Globulin [Mass ratio] 1.7 {ratio} 0.9-2.4 [facility] Serum or plasma alkaline linnea sphatase measurementOrdered By: Brittany Faustin on 09-02-2024 ALP [Catalytic activity/Vol] 74 U/L 35-104 [facility] Serum or plasma calcium ayesha urement (mass/volume)Ordered By: Brittany Faustin on 09-02-2024 Calcium [Mass/Vol] 9.2 mg/dL 7.6-11.0 [facility] Serum or plasma cholesterol in HDL measurement (mass/volume)Ordered By: Brittany Faustin on 09-02-2024 Cholesterol in HDL [Mass/Vol] 46 mg/dL >40 [facility] Comment on above: National Cholesterol Education Program (NCEP) guidelines:<40 mg/dL: Low HDL-cholesterol (major risk factor for CHD)>= 60 mg/dL: High HDL-cholesterol (negative risk factor for CHD)HDL-cholesterol is affected by a number of factors, e.g. smoking, exercise, hormones, sex and age. Serum or plasma cholesterol measurement (mass/volume)Ordered By: Brittany Faustin on 09-02-2024 Cholesterol [Mass/Vol] 176 mg/dL <201 [facility] Comment on above: Cholesterol level, D esirable <200 mg/dLBorderline high cholesterol 200-239 mg/dLHigh cholesterol >=240 mg/dLRecommendations of the NCEP Adult Treatment Panel for the following risk-cutoff thresholds for the [place] population. Serum or plasma urea nitroge n measurement (mass/volume)Ordered By: Birttany Faustin on 09-02-2024 Urea nitrogen [Mass/Vol] 10 mg/dL 4-19 [facility] Sodium levelOrdered By: Lynda Faustin on 09-02-2024 Sodium [Moles/Vol] 141 mmol/L 133-145 [facility] T4 Free Directon 09-02-2024 T4 FREE DIRECT 1.30 ng/dL Normal 0.76-1.46 [facility] Comment on above: Order Comment: ovari an reserve Performed By: #### L 500.4100, L900.0111, L100.0100, L500.4050, L506.0400, L501.9520 #### [facility] [address] [place], [place], [id number] T4 freeOrdered By: Brittany dowd on 09-02-2024 Free T4 [Mass/Vol] 1.30 ng/dL 0.76-1.46 [facility] TSH DL <= 0.005 mIU/L QnOrde red By: Brittany Faustin on 09-02-2024 TSH Qn 0.079 uIU/mL Low 0.300-4.200 [facility] Thyroid Stim Hormone (TSH)on 09-02-2024 TSH 0.079 uIU/mL Low 0.300-4.200 [facility] Comment on above: Performed By: #### L 500.4100, L900.0111, L100.0100, L500.4050, L506.0400, L501.9520 #### [facility] [address] [place], [place], [id number] Total proteinOrdered By: Tenzin Faustin on 09-02-2024 Protein [Mass/Vol] 7.0 g/dL 5.9-8.4 [facility] Triglycerides measurementOrd ered By: Brittany Faustin on 09-02-2024 Triglyceride [Mass/Vol] 84 mg/dL <[address] [facility] Comment on above: The drugs N-Acetylcy steine and Metamizole may falsely depress this assay. Normal range: <150 mg/dLBorderline High: 150-199 mg/dLHigh: 200-499 mg/dLVery High: >500 mg/dL White blood cell (WBC) count Ordered By: Brittany Faustin on 09-02-2024 WBC (Bld) [#/Vol] 6.3 10*3/uL 4.4-11.0 [facility] Research And Development Tester Office Visit Reporton 08-30-2024 Research And Development Tester Office Visit Report [facility] [address], [address] [place] [address] OFFICE VISIT Date of Service: 08/30/24 MR#: [id number] Acct: [id number] Name: MARQUIS BARBER Rep #: [id number] : 1995 Provider: SANDEE Cavanaugh Age/Sex: 28/F Location: [facility] Status: Signed Intake Vital Signs 07/21/23 03:42 08/30/24 14:56 Height 5 ft 7 in 5 ft 7 in Weight: 264 lb BMI 41.3 BP 125/84 H Intake Visit 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: 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 Required: No Is patient in pain?: No Allergies No Known Allergies Allergy (Verified 08/30/24 14:58) Medications ???Medication ???Instructions ???Recorded ???Confirmed ???Type acetaminophen 325 mg capsule 325 mg PO Q6H PRN 07/03/18 5 History (Tylenol) lorazepam 0.5 mg tablet 0.5 mg PO DAILY 07/21/23 08/30/24 History docosahexaenoic acid 200 mg mg PO 08/30/24 08/30/24 History capsule ( DHA) magnesium carb,citrate,oxide mg PO 08/30/24 08/30/24 History (Magnesium Complex) Is last menstrual period known: Yes Last Menstrual Period: 08/07/24 Post menopausal: No Patient : No : No Control Method: [facility] History (Updated 08/30/24 @ 15:26 by SANDEE Greene) PTSD (post-traumatic stress disorder) Depression Anxiety Chronic neck and back pain Fatigue Shortness of breath Social History (Updated 08/30/24 @ 15:01 by Lavonne Hannon) adopted: No number of children: 0 current occupational status: employed 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 She and her has been trying for 1 year to conceive. She has attempted ovulation tracking at home; felt these were accurate as she was using multiple tests that were consistent. PAP completed with PCP 2021--Normal/Negati ve HPV. Denies concerns for STDs. Female Reproductive History Last Menstrual Period: 08/07/24 Cycle Length: 21-35 Bleeding Duration: 5 Questions: metorrhagia: No, sexually active: Yes, dyspareunia: No and PCB: No History 0 Elective abortions Hx Para Spontaneous abortions Hx # Term Pregnancies Ectopic pregnancies Hx # Pregnancies Multiple births # of living children ROS Const Constitutional: Denies chills, fatigue, fever(s) or headache(s) Cardio Card: Denies palpitations Resp Resp: Denies dyspnea GI GI: Denies abdominal pain : Denies pelvic pain, vaginal discharge, vaginal dryness, vaginal odor or vaginal pruritus Endo Endo: Denies cold intolerance, excessive sweating, heat intolerance or polydipsia Exam Const General: cooperative, healthy appearing, comfortable, no acute distress and well developed Neck Neck: normal visual inspection Thyroid: thyroid normal Resp Effort Inspection: normal respiratory effort and able to speak in complete sentences Neuro General: patient alert, patient awake, patient oriented x3 and moves all extremities Coding Level of Care Code New Pt Off vis,new,level 3 Patient Type New Diagnoses Infertility, female N97.9 Assessment and Plan Assessment and Plan (1) Infertility, female: Status: Acute Plan: PAP UTD and normal/negative--re [facility]. Ultrasound, labwork, OVR kit/ day 3 and 21 labs ordered. Consider semen analysis if above normal. Will need to RTO for annual visit in near future. Call once results are available. Orders: Orders Lipid Profile Today N97.9 - Female infertility, unspecified Thyroid Stim Hormone (TSH) Today N97.9 - Female infertility, unspecified CBC W/Diff, Automated Today N97.9 - Female infertility, unspecified Comprehensive Metabolic Profil Today N97.9 - Female infertility, unspecified T4 Free Direct Today N97.9 - Female infertility, unspecified Pelvic w/ Transvaginal Today N97.9 - Female infertility, unspecified PROGESTERONE 21 Days N97.9 - Female infertility, unspecified REPROSOURCE Today N97.9 - Female infertility, unspecified 08/30/24 1603 Date Brittany Faustin TOOL MAINTENANCE TECHNICIAN-C Cosigner Signature: Date (if applicable) CC: [facility] 3608-15-2024 36 S: Patient spoke with [facility] nurse regarding appointment request. B: Onset of symptoms/concern today. A: Patient reports she received a voicemail from the office today stating she needs to reschedule her appointment for the end of this month. Patient is requesting to reschedule now. R: Patient warm-transferred to [facility], back line office staff member at this time for further assistance with scheduling. No further needs at this time. 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 Since then, she has been feeling weak and exhausted. States her urine is a little darker than normal but better than what it was. No sun burn, muscle cramps, or feeling of fever. States she would like to be evaluated. R: Home care discussed and patient advised note will be sent to office regarding her symptoms and requests. No appropriate appointment available. Patient advised t call back during office hours to schedule an appointment. Patient understands care advice. No further needs at this time. Patient instructed to call back with new or worsening symptoms. Reason for Disposition Normal hot, flushed (pink) skin from heat exposure Protocols used: Heat Exposure (Heat Exhaustion and Heat Stroke)-[facility] 36on 10-01-2023 36 S: Patient spoke with [facility] nurse regarding Kidney infection. B: Onset of symptoms started 3 days ago. A: L flank pain, Difficulty to urinate, chills and sweaty, burning with urination and frequency.drinking fluids, started AZO. R: Appointment scheduled, address given to the patient, instructed to bring photo ID, insurance info and medication list to the appointment. Patient understands care advice. No further needs at this time. Patient instructed to call back with new or worsening symptoms. Reason for Disposition Side (flank) or lower back pain present Protocols used: Urinary Omyysloq-[id number] [facility] CNPNon 05-20-2021 CNPN Telephone (Snapvine) ---- MARQUIS BARBER ([id number]) 1995 F Date Time Provider Department 05/20/21 JENNIFER AMAYA During your visit today, we recorded the following information about you: Lea Matute MA 05/20/2021 11:17 AM Signed Referral for orthopedics has been submitted via the [facility] Internal Referral request form on the [facility] Appointment Portal. Confirmation # [id number] Lea Matute MA Allergies As of Date: 05/20/2021 (No Known Allergies) Date Reviewed: 04/23/2021 Reviewed by: Lea Matute MA - Fully Assessed Reason for Visit: Internal Referrals/resources [908] Prescriptions as of 05/20/2021 - gabapentin (NEURONTIN) 300 mg capsule Take 300 mg by mouth twice daily. - celecoxib (CELEBREX) 200 mg capsule Take 200 mg by mouth twice daily. - sertraline (ZOLOFT) 100 mg tablet Take 100 mg by mouth twice daily. 0.5 tablets bid - lidocaine (LIDODERM) 5 % Apply 1 Patch as directed every 24 hours. - aspirin/acetaminoph en/caffeine (EXCEDRIN EXTRA STRENGTH ORAL) Take by mouth. Problem List As Of Date 05/20/2021 Noted Resolved Spinal stenosis of cervical region [M48.02] 02/12/2021 Carpal tunnel syndrome of right wrist [G56.01] 04/23/2021 Encounter Status:Closed by [facility]UTE [facility] KEENAN Tele[facility] (NEAGCLM) ---- MARQUIS BARBER ([id number]) 1995 F Date Time Provider Department 05/19/21 JENNIFER AMAYA NEAGCLM During your visit today, we recorded the following information about you: Jennifer Amaya APRN.CNP 05/19/2021 10:22 AM Signed Attempted to contact patient to discuss EMG results, no answer. Left voicemail message for her to return call at her earliest convenience. Consult placed to Dr. Gordon. Jennifer Amaya APRN-KEENA Neurosurgery Nurse Practitioner [facility] 05/19/2021 10:22 AM Allergies As of Date: 05/19/2021 (No Known Allergies) Date Reviewed: 04/23/2021 Reviewed by: Lea Matute MA - Fully Assessed Reason for Visit: Results [95] Primary Visit Diagnosis:Carpal tunnel syndrome of right wrist [G56.01] Order(s):CONSULT TO ORTHOPEDICS AND SPORTS MEDICINE [[id number]] Order #: [id number]: 1 Prescriptions as of 05/19/2021 - gabapentin (NEURONTIN) 300 mg capsule Take 300 mg by mouth twice daily. - celecoxib (CELEBREX) 200 mg capsule Take 200 mg by mouth twice daily. - sertraline (ZOLOFT) 100 mg tablet Take 100 mg by mouth twice daily. 0.5 tablets bid - lidocaine (LIDODERM) 5 % Apply 1 Patch as directed every 24 hours. - aspirin/acetaminoph en/caffeine (EXCEDRIN EXTRA STRENGTH ORAL) Take by mouth. Problem List As Of Date 05/19/2021 Noted Resolved Spinal stenosis of cervical region [M48.02] 02/12/2021 Carpal tunnel syndrome of right wrist [G56.01] 04/23/2021 Encounter Status:Closed by JENNIFER AMAYA on 05/19/21 [facility] CNPNon 04-30-2021 CNPN Telephone (AGSPINE3) ---- MARQUIS PRETTY ([id number]) 1995 F Date Time Provider Department 04/30/21 MILIND TEJADA AGSPINE3 During your visit today, we recorded the following information about you: Sierra Dixon 04/30/2021 10:35 AM Signed LVM for patient to schedule right upper EMG (right wrist) Referral from Jennifer Dixon Allergies As of Date: 04/30/2021 (No Known Allergies) Date Reviewed: 04/23/2021 Reviewed by: Lea Matute MA - Fully Assessed Reason for Visit: Future Appointment [256] Prescriptions as of 04/30/2021 - gabapentin (NEURONTIN) 300 mg capsule Take 300 mg by mouth twice daily. - celecoxib (CELEBREX) 200 mg capsule Take 200 mg by mouth twice daily. - sertraline (ZOLOFT) 100 mg tablet Take 100 mg by mouth twice daily. 0.5 tablets bid - lidocaine (LIDODERM) 5 % Apply 1 Patch as directed every 24 hours. - aspirin/acetaminoph en/caffeine (EXCEDRIN EXTRA STRENGTH ORAL) Take by mouth. Problem List As Of Date 04/30/2021 Noted Resolved Spinal stenosis of cervical region [M48.02] 02/12/2021 Carpal tunnel syndrome of right wrist [G56.01] 04/23/2021 Encounter Status:Closed by SIERRA DIXON on 04/30/21 [facility] CNOVon 04-23-2021 CNOV Office Visit (AGCMR) ---- MARQUIS PRETTY ([id number]) 1995 F Date Time Provider Department 04/23/21 3:30 PM ISAIAS DAMON [facility] During your visit today, we recorded the following information about you: Temperature Pulse Blood pressure Weight 97.4 degrees 68/minute 128/78 113.4 kg Height 1.727 m Isaias Damon MD 04/23/2021 3:51 PM Signed Isaias Damon M.D. [facility] General Orthopedics - Orthopedic Spine Surgeon SPINE SURGERY FOLLOW UP VISIT [address] [id number] [address] [facility] [place] [phone] [facility], [address] [address] Phone: [phone] ([facility]) FAX: [phone] ([place]) SERVICE DATE: 04/23/2021 PCP: No primary care provider on file. CHIEF COMPLAINT: neck pain HISTORY OF PRESENT ILLNESS Marquis Barber is a 25 year old female who presented on 02/12/2021 as a new patient for evaluation of cervical neck pain. She reported a 5 year history of neck pain with radiation to the right upper extremity. She noted numbness/tingling in the forearm into the first three digits. At its worst, she will experience this into the entire hand as well as in her left hand. She denied balance issues, bowel or bladder changes. Per patient, prior EMG demonsated no evidence of carpal tunnel and positive for a right cervical radiculopathy. She was asked to obtain an MRI of cervical spine and follow up afterwards, prompting her visit today. Today she states continues to have neck pain raidating in radial aspect of right upper extremity. She reports numbness in the first 3 digits in her right hand. She has associated weakness in right hand, reports difficulty with fine motor activity. Denies difficulty with gait/balance. Denies issues with bowel/bladder. She reports she has had a prior EMG/Nerve conduction test completed several years ago, results not available to view. PREVIOUS CONSERVATIVE TREATMENTS: Pain Management: July 2020- til present Injections: cervical MARLYN on 02/27/21- helpful for 1 month Physical therapy- 2016 Gabapentin Celebrex PREVIOUS SPINE SURGERIES: Denies The following portions of the patient's history were reviewed and updated as appropriate: allergies, current medications, past family history, past medical history, past social history, past surgical history and problem list. ACTIVE PROBLEM LIST Spinal Stenosis of Cervical Region History reviewed. No pertinent past medical history. PAST SURGICAL HISTORY Procedure Laterality Date - EPI CERV OR THORC W/IMAGING - EXTRACTION ERUPTED TOOTH/EXR History reviewed. No pertinent family history. Social History Tobacco Use - Smoking status: Never Smoker - Smokeless tobacco: Never Used Substance Use Topics - Alcohol use: Not on file - Drug use: Not on file ALLERGIES No Known Allergies MEDICATIONS: gabapentin (NEURONTIN) 300 mg capsule Take 300 mg by mouth twice daily. celecoxib (CELEBREX) 200 mg capsule Take 200 mg by mouth twice daily. sertraline (ZOLOFT) 100 mg tablet Take 100 mg by mouth twice daily. 0.5 tablets bid lidocaine (LIDODERM) 5 % Apply 1 Patch as directed every 24 hours. aspirin/acetaminoph en/caffeine (EXCEDRIN EXTRA STRENGTH ORAL) Take by mouth. REVIEW OF SYSTEMS Review of Systems Constitutional: Negative for chills, diaphoresis and fever. HENT: Negative for congestion, drooling and tinnitus. Eyes: Negative for photophobia, redness and visual disturbance. Respiratory: Negative for cough, shortness of breath and wheezing. Cardiovascular: Negative for chest pain, palpitations and leg swelling. Gastrointestinal: Negative for constipation, diarrhea, nausea and vomiting. Endocrine: Negative for cold intolerance and heat intolerance. Genitourinary: Negative for difficulty urinating, dysuria, frequency and urgency. Musculoskeletal: Positive for neck pain. Negative for gait problem. Skin: Negative for rash and wound. Allergic/Immunologi c: Negative for environmental allergies and food allergies. Neurological: Positive for numbness. Negative for dizziness, weakness and light-headedness. Hematological: Negative for adenopathy. Does not bruise/bleed easily. Psychiatric/Behavio ral: Negative for agitation and confusion. The patient is not nervous/anxious. I have confirmed and edited as necessary, the PFSH and ROS obtained by others. PROMIS Score Percentiles Percentiles provide an indication of how the patient's score ranks in relation to the general population. Higher percentile rankings indicate better function/quality of life. 50th percentile is the average of the general population and indicates half of respondents had a worse score. OBJECTIVE: PHYSICAL EXAM BP 128/78 (BP Site: Left Arm, BP Position: Sitting, BP Cuff Size: Regular Adult) Pulse 68 Temp 36.3 ?C (97.4 ?F) Ht 5' 8 (1.727 m) Wt 250 lb (113.4 kg) LMP 0 (more content not included)... Normal [facility] 04-14-2021 ALONDRA Telephone (LEELEEBrainiac TV) ---- MARQUIS PRETTY ([id number]) 1995 F Date Time Provider Department 04/14/21 JENNIFER AMAYA During your visit today, we recorded the following information about you: Jennifer Amaya APRN.[facility] 04/15/2021 8:10 AM Signed Open in error Allergies As of Date: 04/14/2021 (No Known Allergies) Date Reviewed: 02/12/2021 Reviewed by: Lea Matute MA - Fully Assessed Reason for Visit: error [[id number]] Prescriptions as of 04/15/2021 - gabapentin (NEURONTIN) 300 mg capsule Take 300 mg by mouth twice daily. - celecoxib (CELEBREX) 200 mg capsule Take 200 mg by mouth twice daily. - sertraline (ZOLOFT) 100 mg tablet Take 100 mg by mouth twice daily. 0.5 tablets bid - lidocaine (LIDODERM) 5 % Apply 1 Patch as directed every 24 hours. - aspirin/acetaminoph en/caffeine (EXCEDRIN EXTRA STRENGTH ORAL) Take by mouth. Problem List As Of Date 04/14/2021 Noted Resolved Spinal stenosis of cervical region [M48.02] 02/12/2021 Encounter Status:Closed by JENNIFER AMAYA on 04/15/21 Normal [facility] MRI CERVICAL SPINE WO IVCONo n 04-11-2021 MRI CERVICAL SPINE WO IVCON * * *Final Report* * * DATE OF EXAM: Apr 11 2021 8:14AM [facility] 0297 - MRI CERVICAL SPINE WO IVCON / PROCEDURE REASON: Spinal stenosis of cervical region * * * * Physician Interpretation * * * * EXAMINATION: MRI CERVICAL SPINE WO IVCON CLINICAL HISTORY: Spinal stenosis of cervical region TECHNIQUE: Routine cervical spine MR protocol without gadolinium. MQ: [id number] COMPARISON: None. RESULT: Counting reference: Craniocervical junction. Anatomic Variants: None. Localizer images: No significant findings. Alignment: There is mild reversal of the cervical lordosis without significant listhesis, likely positional. Craniocervical junction: Craniocervical junction is normal. Cord: The visualized cord is within normal limits of signal intensity and morphology. Bone marrow signal/fracture: No evidence of pathologic marrow infiltration. No evidence of prior fracture. Cervical soft tissues: Incidental fullness of the right vallecula, which may be secondary to reactive changes of the right lingual tonsil. C2-C3: Canal and foramina are patent. C3-C4: Canal and foramina are patent. C4-C5: Canal and foramina are patent. C5-C6: Canal and foramina are patent. C6-C7: Canal and foramina are patent. C7-T1: Spinal canal is patent. There is mild bilateral foraminal stenosis due to mild facet arthropathy. IMPRESSION: No significant spinal canal stenosis. Mild bilateral foraminal stenosis at C7-T1 secondary to mild facet arthropathy. Anatomic Variant: None. Assume 7 cervical vertebrae with counting from the craniocervical junction. Diagnostic Assistant: CATHIE Transcribe Date/Time: Apr 11 2021 8:45A Dictated by : LINN HOUSE MD This examination was interpreted and the report reviewed and electronically signed by: LINN HOUSE MD on Apr 11 2021 9:09AM EST [id number] ACN Normal [facility] 04-01-2021 KEENAN Telephone (NUAGAK) ---- MARQUIS PRETTY ([id number]) 1995 F Date Time Provider Department 04/01/21 JENNIFER AMAYA During your visit today, we recorded the following information about you: Jennifer Amaya APRN.[facility] 04/01/2021 8:21 AM Signed [id number] completed for denial of MRI of cervical spine. Additional information provided to insurance company. Upon further review and additional information approval for MRI of cervical spine has been obtained. Authorization #[id number]. Valid from March 17, 2021 until May 30, 2021. Jennifer Amaya APRN-[facility] Neurosurgery Nurse Practitioner [facility] 04/01/2021 8:21 AM Allergies As of Date: 04/01/2021 (No Known Allergies) Date Reviewed: 02/12/2021 Reviewed by: Lea Matute MA - Fully Assessed Reason for Visit: Peer To Peer Consultation [[id number]] Prescriptions as of 04/01/2021 - gabapentin (NEURONTIN) 300 mg capsule Take 300 mg by mouth twice daily. - celecoxib (CELEBREX) 200 mg capsule Take 200 mg by mouth twice daily. - sertraline (ZOLOFT) 100 mg tablet Take 100 mg by mouth twice daily. 0.5 tablets bid - lidocaine (LIDODERM) 5 % Apply 1 Patch as directed every 24 hours. - aspirin/acetaminoph en/caffeine (EXCEDRIN EXTRA STRENGTH ORAL) Take by mouth. Problem List As Of Date 04/01/2021 Noted Resolved Spinal stenosis of cervical region [M48.02] 02/12/2021 Encounter Status:Closed by JENNIFER AMAYA on 04/01/21 [facility] CBC Auto Differentialon 11-0 Absolute Baso # 0.2 10*3/uL 0.0 - 0.2 10*3/uL [facility] Absolute Neut # 5.1 10*3/uL 1.8 - 7.0 10*3/uL [facility] Basophils/100 WBC (Bld) 2.9 % High 0.0 - 2.0 % [facility] Eosinophils (Bld) [#/Vol] 0.2 10*3/uL 0.0 - 0.5 10*3/uL [facility] Eosinophils/100 WBC (Bld) 2.6 % 1.0 - 6.0 % [facility] Granulocytes/100 WBC (Bld) 66.3 % 40.0 - 80.0 % [facility] Hematocrit (Bld) [Volume fraction] 43.3 % 35.0 - 47.0 % [facility] Hemoglobin.gastrointesti nal spec 1 Ql (Stl) 14.6 g/dL 11.7 - 16.0 g/dL [facility] Interpretation and review of laboratory results Abnormal [facility] Lymphocytes (Bld) [#/Vol] 1.6 10*3/uL 1.0 - 4.3 10*3/uL [facility] Lymphocytes/100 WBC (Bld) 21.1 % 20.0 - 40.0 % [facility] MCH (RBC) [Entitic mass] 28.0 pg 26. 0 - 34.0 pg [facility] MCHC (RBC) [Mass/Vol] 33.7 % 32.0 - 36.0 % [facility] MCV (RBC) [Entitic vol] 83.2 fL 79.0 - 98.0 fL [facility] Monocytes (Bld) [#/Vol] 0.6 10*3/uL 0.0 - 0.8 10*3/uL [facility] Monocytes/100 WBC (Bld) 7.1 % 2.0 - 10.0 % [facility] Platelet distribution width (Bld) [Ratio] 13.7 % 11.5 - 14.5 % [facility] Platelet mean volume (Bld) [Entitic vol] 8.7 fL 7.4 - 10.4 fL [facility] Platelets (Bld) [#/Vol] 329 10*3/uL 140 - 440 10*3/uL [facility] RBC (Bld) [#/Vol] 5.21 10*6/uL High 3.80 - 5.2 0 10*6/uL [facility] WBC (Bld) [#/Vol] 7.8 10*3/uL 3.6 - 10.7 10*3/uL [facility] Test Performed by [facility], [address] , [place], [place] [id number] [place] [address] LAB [facility] Comp Metabolic Panelon 03-08 ALP [Catalytic activity/Vol] 82 U/L Normal 38-126 [facility] Comment on above: Performed By: #### L IPD2, CMP3, TSH5, HEMDF #### [facility] [address] [place] [address] ALT [Catalytic activity/Vol] 14 U/L Normal 0-34 [facility] Comment on above: Result Comment: The ALT test is performed by an updated assay method. Please note that the reference intervals have been changed and are now sex specific. Performed By: #### L IPD2, CMP3, TSH5, HEMDF #### [facility] [address] [place] [address] Calcium [Mass/Vol] 9.9 mg/dL Normal 8.4-10.4 [facility] Comment on above: Performed By: #### L IPD2, CMP3, TSH5, HEMDF #### [facility] [address] [place] [address] Anion gap [Moles/Vol] 5 mmol/L Normal 3-13 [facility] Comment on above: Performed By: #### L IPD2, CMP3, TSH5, HEMDF #### [facility] [address] [place] [address] AST [Catalytic activity/Vol] 23 U/L Normal 15-46 [facility] Comment on above: Performed By: #### L IPD2, CMP3, TSH5, HEMDF #### [facility] [address] [place] [address] Bilirubin [Mass/Vol] 0.3 mg/dL Normal 0.2-1.3 [facility] Comment on above: Performed By: #### L IPD2, CMP3, TSH5, HEMDF #### [facility] [address] [place] [address] CO2 [Moles/Vol] 27 mmol/L Normal 22-30 [facility] Comment on above: Performed By: #### L IPD2, CMP3, TSH5, HEMDF #### [facility] [address] [place] [address] Creatinine [Mass/Vol] 0.72 mg/dL Normal 0.52-1.25 [facility] Comment on above: Performed By: #### L IPD2, CMP3, TSH5, HEMDF #### [facility] [address] [place] [address] eGFR OTHER > 90.0 Normal >60 [facility] Comment on above: Result Comment: KDIG O guidelines provide the following GFR categories: Stage GFR(ml/min/1.73 m2) Terms G1 >=90 Normal or high G2 60-89 Mildly decreased* G3a 45-59 Mildly to moderately decreased G3b 30-44 Moderately to severely decreased G4 15-29 Severely decreased G5 <15 Kidney failure *Relative to young adult level. In the absence of evidence of kidney damage, neither GFR category G1 nor G2 fulfill the criteria for CKD. The CKD-EPI equation is validated in individuals 18 years of age and older. Currently the best equation for estimating glomerular filtration rate (GFR) from serum creatinine in children is the Bedside Abreu equation. It is less accurate in patients with extremes of muscle mass, restriction of dietary protein, ingestion of creatine, extra-renal metabolism of creatinine, or treatment with medications that affect renal tubular creatinine secretion. Performed By: #### L IPD2, CMP3, TSH5, HEMDF #### [facility] [address] [place] [address] GFR/1.73 sq M.predicted among blacks MDRD (S/P/Bld) [Vol rate/Area] mL/min/{1.73_m2} Normal >60 [facility] Comment on above: Performed By: #### L IPD2, CMP3, TSH5, HEMDF #### [facility] [address] [place] [address] Glucose [Mass/Vol] 99 mg/dL Normal 70-100 [facility] Comment on above: Performed By: #### L IPD2, CMP3, TSH5, HEMDF #### [facility] [address] [place] [address] Protein [Mass/Vol] 7.5 g/dL Normal 6.3-8.2 [facility] Comment on above: Performed By: #### L IPD2, CMP3, TSH5, HEMDF #### [facility] [address] [place] [address] Urea nitrogen [Mass/Vol] 11 mg/dL Normal 9-20 [facility] Comment on above: Performed By: #### L IPD2, CMP3, TSH5, HEMDF #### [facility] [address] [place] [address] Chloride [Moles/Vol] 108 mmol/L High 98-107 [facility] Comment on above: Performed By: #### L IPD2, CMP3, TSH5, HEMDF #### [facility] [address] [place] [address] Potassium [Moles/Vol] 4.3 mmol/L Normal 3.5-5.1 [facility] Comment on above: Performed By: #### L IPD2, CMP3, TSH5, HEMDF #### [facility] [address] [place] [address] Sodium [Moles/Vol] 140 mmol/L Normal 135-145 [facility] Comment on above: Performed By: #### L IPD2, CMP3, TSH5, HEMDF #### [facility] [address] [place] [address] Albumin [Mass/Vol] 4.5 g/dL Normal 3.5-5.0 [facility] Comment on above: Performed By: #### L IPD2, CMP3, TSH5, HEMDF #### [facility] [address] [place] [address] Comprehensive Metabolic Pane lm 03-08-2021 Albumin [Mass/Vol] 4.5 g/dL 3.5 - 5.0 g/dL [facility] ALP (Bld) [Catalytic activity/Vol] 82 U/L 38 - 126 U/L [facility] ALT [Catalytic activity/Vol] 14 U/L 0 - 34 U/L [facility] Comment on above: The ALT test is perf ormed by an updated assay method. Please note that the reference intervals have been changed and are now sex specific. Anion gap [Moles/Vol] 5 mmol/L 3 - 13 mmol/L [facility] AST [Catalytic activity/Vol] 23 U/L 15 - 46 U/L [facility] Bilirubin [Mass/Vol] 0.3 mg/dL 0.2 - 1 .3 mg/dL [facility] Calcium [Mass/Vol] 9.9 mg/dL 8.4 - 10. 4 mg/dL [facility] Chloride [Moles/Vol] 108 mmol/L High 98 - 10 7 mmol/L [facility] CO2 [Moles/Vol] 27 mmol/L 22 - 30 mmol/L [facility] Creatinine [Mass/Vol] 0.72 mg/dL 0.52 - 1.25 mg/dL [facility] EGFR IF NonAfrican Yemeni >90.0 >60 mL/min [facility] Comment on above: KDIGO guidelines pro vide the following GFR categories: Stage GFR(ml/min/1.73 m2) Terms G1 >=90 Normal or high G2 60-89 Mildly decreased* G3a 45-59 Mildly to moderately decreased G3b 30-44 Moderately to severely decreased G4 15-29 Severely decreased G5 <15 Kidney failure *Relative to young adult level. In the absence of evidence of kidney damage, neither GFR category G1 nor G2 fulfill the criteria for CKD. The CKD-EPI equation is validated in individuals 18 years of age and older. Currently the best equation for estimating glomerular filtration rate (GFR) from serum creatinine in children is the Bedside Abreu equation. It is less accurate in patients with extremes of muscle mass, restriction of dietary protein, ingestion of creatine, extra-renal metabolism of creatinine, or treatment with medications that affect renal tubular creatinine secretion. Free PSA/Total PSA [Mass fraction] 7.5 g/dL 6.3 - 8.2 g/dL [facility] GFR/1.73 sq M.predicted among blacks MDRD (S/P/Bld) [Vol rate/Area] mL/min/{1.73_m2} >60 mL/min [facility] Glucose [Mass/Vol] 99 mg/dL 70 - 100 mg/dL [facility] Potassium [Moles/Vol] 4.3 mmol/L 3.5 - 5.1 mmol/L [facility] Sodium [Moles/Vol] 140 mmol/L 135 - 145 mmol/L [facility] Urea nitrogen (BldV) [Mass/Vol] 11 mg/dL 9 - 20 mg/dL [facility] Hemogram w/ Autodiffon 03-08 Abs Baso Cnt 0.2 10*3/uL Normal 0.0-0.2 [facility] Comment on above: Performed By: #### L IPD2, CMP3, TSH5, HEMDF #### [facility] [address] [place] [address] Abs Neutrophile Cnt 5.1 10*3/uL Normal 1.8-7.0 [facility] Comment on above: Performed By: #### L IPD2, CMP3, TSH5, HEMDF #### [facility] [address] [place] [address] Basophils/100 WBC (Bld) 2.9 % High 0.0-2.0 [facility] Comment on above: Performed By: #### L IPD2, CMP3, TSH5, HEMDF #### [facility] [address] [place] [address] Eosinophils (Bld) [#/Vol] 0.2 10*3/uL Normal 0.0-0.5 [facility] Comment on above: Performed By: #### L IPD2, CMP3, TSH5, HEMDF #### [facility] [address] [place] [address] Eosinophils/100 WBC (Bld) 2.6 % Normal 1.0-6.0 [facility] Comment on above: Performed By: #### L IPD2, CMP3, TSH5, HEMDF #### [facility] [address] [place] [address] Erythrocyte distribution width (RBC) [Ratio] 13.7 % Normal 11.5-14.5 [facility] Comment on above: Performed By: #### L IPD2, CMP3, TSH5, HEMDF #### [facility] [address] [place] [address] Granulocytes/100 WBC (Bld) 66.3 % Normal 40.0-80.0 [facility] Comment on above: Performed By: #### L IPD2, CMP3, TSH5, HEMDF #### [facility] [address] [place] [address] Hematocrit (Bld) [Volume fraction] 43.3 % Normal 35.0-47.0 [facility] Comment on above: Performed By: #### L IPD2, CMP3, TSH5, HEMDF #### [facility] [address] [place] [address] Hemoglobin (Bld) [Mass/Vol] 14.6 g/dL Normal 11.7-16.0 [facility] Comment on above: Performed By: #### L IPD2, CMP3, TSH5, HEMDF #### [facility] [address] [place] [address] Lymphocytes (Bld) [#/Vol] 1.6 10*3/uL Normal 1.0-4.3 [facility] Comment on above: Performed By: #### L IPD2, CMP3, TSH5, HEMDF #### [facility] [address] [place] [address] Lymphocytes/100 WBC (Bld) 21.1 % Normal 20.0-40.0 [facility] Comment on above: Performed By: #### L IPD2, CMP3, TSH5, HEMDF #### [facility] [address] [place] [address] MCH (RBC) [Entitic mass] 28.0 pg Normal 26.0-34.0 [facility] Comment on above: Performed By: #### L IPD2, CMP3, TSH5, HEMDF #### [facility] [address] [place] [address] MCHC 33.7 % Normal 32.0-36.0 [facility] Comment on above: Performed By: #### L IPD2, CMP3, TSH5, HEMDF #### [facility] [address] [place] [address] MCV (RBC) [Entitic vol] 83.2 fL Normal 79.0-98.0 [facility] Comment on above: Performed By: #### L IPD2, CMP3, TSH5, HEMDF #### [facility] [address] [place] [address] Monocytes (Bld) [#/Vol] 0.6 10*3/uL Normal 0.0-0.8 [facility] Comment on above: Performed By: #### L IPD2, CMP3, TSH5, HEMDF #### [facility] [address] [place] [address] Monocytes/100 WBC (Bld) 7.1 % Normal 2.0-10.0 [facility] Comment on above: Performed By: #### L IPD2, CMP3, TSH5, HEMDF #### [facility] [address] [place] [address] Platelet mean volume (Bld) [Entitic vol] 8.7 fL Normal 7.4-10.4 [facility] Comment on above: Performed By: #### L IPD2, CMP3, TSH5, HEMDF #### [facility] [address] [place] [address] Platelets (Bld) [#/Vol] 329 10*3/uL Normal 140-440 [facility] Comment on above: Performed By: #### L IPD2, CMP3, TSH5, HEMDF #### [facility] [address] [place] [address] RBC (Bld) [#/Vol] 5.21 10*6/uL High 3.80-5.20 [facility] Comment on above: Performed By: #### L IPD2, CMP3, TSH5, HEMDF #### [facility] [address] [place] [address] WBC (Bld) [#/Vol] 7.8 10*3/uL Normal 3.6-10.7 [facility] Comment on above: Performed By: #### L IPD2, CMP3, TSH5, HEMDF #### [facility] [address] [place] [address] Lipid Panelon 03-08-2021 Chol/HDL 3 Normal [facility] Comment on above: Result Comment: Ref Range: < 3 Low Risk for CHD 3-6 Mod Risk for CHD > 6 High Risk for CHD Performed By: #### L IPD2, CMP3, TSH5, HEMDF #### [facility] [address] [place] [address] Cholesterol in HDL [Mass/Vol] 59 mg/dL Normal 40-60 [facility] Comment on above: Performed By: #### L IPD2, CMP3, TSH5, HEMDF #### [facility] [address] [place] [address] Low Density Lipoprotein 119 mg/dL Abnormal <100 [facility] Comment on above: Performed By: #### L IPD2, CMP3, TSH5, HEMDF #### [facility] [address] [place] [address] Triglyceride [Mass/Vol] 101 mg/dL Normal <150 [facility] Comment on above: Performed By: #### L IPD2, CMP3, TSH5, HEMDF #### [facility] [address] [place] [address] Cholesterol [Mass/Vol] 198 mg/dL Normal < 200 [facility] Comment on above: Performed By: #### L IPD2, CMP3, TSH5, HEMDF #### [facility] [address] [place] [address] Cholesterol [Mass/Vol] 198 mg/dL <200 [facility] Cholesterol in HDL [Mass/Vol] 59 mg/dL 40 - 60 mg/dL [facility] Cholesterol in LDL [Mass/Vol] 119 mg/dL Abnormal <100 [facility] Cholesterol.total/Choles terol in HDL [Mass ratio] 3 {ratio} [facility] Comment on above: Ref Range: < 3 Low Risk for CHD 3-6 Mod Risk for CHD > 6 High Risk for CHD Triglyceride [Mass/Vol] 101 mg/dL <150 [facility] No Panel Informationon 03-08 Interpretation and review of laboratory results Abnormal [facility] Test Performed by [facility], [address] , [address] LAB [facility] TSH without Reflexon 021 TSH Qn 1.645 u[IU]/mL 0.465 - 4.680 u[IU]/mL [facility] Test Performed by [facility], [address] , [place], [place] [id number] [place] [address] LAB [facility] Thyroid Stim. Hormoneon 11-0 Thyroid Stim. Hormone 1.645 u[IU]/mL Normal 0.465-4.68 0 [facility] Comment on above: Performed By: #### L IPD2, CMP3, TSH5, HEMDF #### [facility] [address] [place] [address] CNCOon 02-12-2021 CNCO Letter Text Normal [facility] CNOVon 02-12-2021 CNOV Office Visit ([facility]) ---- MARQUIS BARBER ([id number]) 1995 F Date Time Provider Department 02/12/21 1:00 PM ISAIAS DAMON [facility] During your visit today, we recorded the following information about you: Temperature Pulse Blood pressure Weight 98.4 degrees 94/minute 125/81 113.9 kg Height Last Period 1.727 m 01/20/21 Isaias Damon MD 02/12/2021 1:18 PM Signed Isaias Damon M.D. [facility] Orthopedics - Orthopedic Spine Surgeon [address] [place] [address], [facility] [id number] [address] [facility] [phone] [address] Phone: [phone] ([facility]) FAX: [phone] ([place]) SPINE SURGERY OUTPATIENT CONSULT SERVICE DATE: 02/12/2021 PCP: No primary care provider on file. CHIEF COMPLAINT: neck pain HISTORY OF PRESENT ILLNESS Marquis Barber is a 25 year old female presenting with mother. The patient presents as a new patient with X-ray imaging of her cervical spine. She describes 5 years of neck pain with radiation to the right upper extremity. She describes numbness/tingling in the forearm into the first three digits. At its worst, she will experience this into the entire hand as well as in her left hand. She denies balance issues, bowel or bladder changes. Per patient, prior EMG demonsated no evidence of carpal tunnel. It was positive for a right cervical radiculopathy. PREVIOUS CONSERVATIVE TREATMENTS: Pain Management -[employer] [facility] PREVIOUS SPINE SURGERIES: Denies The following portions of the patient's history were reviewed and updated as appropriate: allergies, current medications, past family history, past medical history, past social history, past surgical history and problem list. There is no problem list on file for this patient. History reviewed. No pertinent past medical history. PAST SURGICAL HISTORY Procedure Laterality Date - EXTRACTION ERUPTED TOOTH/EXR History reviewed. No pertinent family history. Social History Tobacco Use - Smoking status: Never Smoker - Smokeless tobacco: Never Used Substance Use Topics - Alcohol use: Not on file - Drug use: Not on file ALLERGIES No Known Allergies MEDICATIONS: gabapentin (NEURONTIN) 300 mg capsule Take 300 mg by mouth twice daily. celecoxib (CELEBREX) 200 mg capsule Take 200 mg by mouth twice daily. sertraline (ZOLOFT) 100 mg tablet Take 100 mg by mouth twice daily. 0.5 tablets bid lidocaine (LIDODERM) 5 % Apply 1 Patch as directed every 24 hours. aspirin/acetaminoph en/caffeine (EXCEDRIN EXTRA STRENGTH ORAL) Take by mouth. REVIEW OF SYSTEMS Review of Systems Constitutional: Negative for chills, diaphoresis and fever. HENT: Negative for congestion, drooling and tinnitus. Eyes: Negative for photophobia, redness and visual disturbance. Respiratory: Negative for cough, shortness of breath and wheezing. Cardiovascular: Negative for chest pain, palpitations and leg swelling. Gastrointestinal: Negative for constipation, diarrhea, nausea and vomiting. Endocrine: Negative for cold intolerance and heat intolerance. Genitourinary: Negative for difficulty urinating, dysuria, frequency and urgency. Musculoskeletal: Positive for back pain and neck pain. Negative for gait problem. Skin: Negative for rash and wound. Allergic/Immunologi c: Negative for environmental allergies and food allergies. Neurological: Negative for dizziness, weakness, light-headedness and numbness. Hematological: Negative for adenopathy. Does not bruise/bleed easily. Psychiatric/Behavio ral: Negative for agitation and confusion. The patient is not nervous/anxious. I have confirmed and edited as necessary, the PFSH and ROS obtained by others. PROMIS Score Percentiles Percentiles provide an indication of how the patient's score ranks in relation to the general population. Higher percentile rankings indicate better function/quality of life. 50th percentile is the average of the general population and indicates half of respondents had a worse score. OBJECTIVE: PHYSICAL EXAM BP 125/81 (BP Site: Left Arm, BP Position: Sitting, BP Cuff Size: Large Adult) Pulse 94 Temp 36.9 ?C (98.4 ?F) Ht 172.7 cm (5' 8) Wt 113.9 kg (251 lb) LMP 01/20/2021 (Approximate) SpO2 100% BMI 38.16 kg/m? Upper Extremity Strength Exam Right Left Deltoid 5 5 Biceps 5 5 Triceps 5 5 Wrist Extension 5 5 Interossei 5 5 Lower extremities: Sensation: Intact to light touch Lower Extremity Strength Exam Right Left Psoas 5 5 Quadriceps 5 5 DF 5 5 EHL 5 5 PF 5 5 GAIT: Able to perform toe and heel walk. Able to perform tandem gait. LONG TRACT SIGNS: No clonus. No Hoffmanns. REFLEXES: symmetric non-brisk DATA REVIEW EMG with evidence of right arm radiculopathy No new images today I personally performed the services described in this not (more content not included)... Normal [facility] CHEST 2 VIEW PA AND LATon CHEST 2 VIEW PA AND LAT Patient Name: MARQUIS PRETTY STUDY: CHEST 2 VIEW PA AND LAT; 10/22/2019 4:30 pm INDICATION: sob. COMPARISON: None. ACCESSION NUMBER(S): [id number] ORDERING CLINICIAN: BRENTON PULLIAM FINDINGS: CARDIOMEDIASTINAL SILHOUETTE: Cardiomediastinal silhouette is normal in size and configuration. LUNGS: Lungs are clear. ABDOMEN: No remarkable upper abdominal findings. BONES: No acute osseous changes. IMPRESSION: 1. No evidence of acute cardiopulmonary process. Electronically signed by: JOHN KUMARI MD Normal [facility] HPVon 12-30-2018 HPV Interp Normal See Interp HPVN [facility] ([place]) Comment on above: Order Comment: Order placed by AP_HPV_ORDER rule from [id number] Result Comment: High Risk HPV Typing: NEGATIVE HPV types 16, 18, 31, 33, 35, 39, 45, 51, 52, 56, 58, 59, 66 and 68 DNA were undetectable or below the pre-set threshold. The manuelito High-Risk HPV DNA Test is not intended for use as a screening device for Pap normal women under age 30 and is not intended to substitute for regular Pap screening. The manuelito High-Risk HPV DNA Test is designed to augment existing methods for the detection of cervical disease and should be used in conjunction with clinical information derived from other diagnostic and screening tests, physical examinations and full medical history in accordance with appropriate patient management procedures. NOTE: A negative result does not preclude the presence of HPV infection because results depend on adequate specimen collection, absence of inhibitors and sufficient DNA to be detected. See Inter HPVN Performed By: #### H PV #### [place] [address] HPV Source Cervix Normal [facility] ([place]) Comment on above: Order Comment: Order placed by AP_HPV_ORDER rule from [id number] Performed By: #### H PV #### [place] [address] [employer] Making Machine Operator Cytology Reporton 2018 P[employer] Making Machine Operator Cytology Report . Pathology Reports Accession: Collected Date/Time: Received Date/Time: Pathologist: [id number] 12/22/2018 17:12 EDT 2018 18:00 EDT P[employer] Operator Cytology Report SPECIMEN: Specimen Description: Liquid Prep w/ HPV Specimen: Cervical/Endocervic al Screening or Diagnostic: Screening RELEVANT HISTORY: LMP: not given [id number] SPECIMEN ADEQUACY: SATISFACTORY FOR EVALUATION ENDOCERVICAL/TRANSF ORMATIONAL ZONE COMPONENT PRESENT INTERPRETATION/RESU LTS: NEGATIVE FOR INTRAEPITHELIAL LESION OR MALIGNANCY ADJUNCTIVE TESTING: HIGH RISK HPV DNA TESTING ORDERED, REPORT TO FOLLOW UNDER SEPARATE COVER ORGANISMS: FUNGAL ORGANISMS MORPHOLOGICALLY CONSISTENT WITH LIZA SPECIES. COMMENT: This Pap Test was successfully processed and evaluated with the assistance of the [employer] ThinPrep Test Imaging System. Electronically Signed by Pathology report verified by [facility] Screened by: GL Electronically signed by Niya Constantino Sign-Out Date: 12/29/2018 13:51 Performing Lab: [facility], [address] [place] [address] States Disclaimer The Pap test is a screening test for cervical cancer. As evidenced by published data, it is subject to both inherent false negative and false positive results. Your patient's results should be interpreted in context with pertinent clinical history including gynecological examination. Normal [facility] ([place]) Comment on above: Performed By: #### G YCR #### [place] [address] Vital Signs Date Time Vital Sign Value Performing Clinician Facility 08-30-2024 14:56-0400 Body height 170.[address] Merrick Mai MD Work Phone: [facility] 08-30-2024 14:56-0400 Body mass index (BMI) [Ratio] 41.3 kg/m2 Dr. Merrick Mai MD Work Phone: [facility] 08-30-2024 14:56-0400 Body weight 119.[address] Merrick Mai MD Work Phone: [facility] 08-30-2024 14:56-0400 Diastolic blood pressure 84 mm[Hg] Dr. Merrick Mai MD Work Phone: [facility] 08-30-2024 14:56-0400 Systolic blood pressure 125 mm[Hg] Dr. Merrick Mai MD Work Phone: [facility] 07-21-2023 03:42-0400 Body height 170.18 cm [facility] 07-21-2023 03:42-0400 Body mass index (BMI) [Ratio] 41.6 kg/m2 [facility] 07-21-2023 03:42-0400 Body temperature 97.8 [degF] [facility] 07-21-2023 03:42-0400 Body weight 120.7 kg [facility] 07-21-2023 03:42-0400 Diastolic blood pressure 86 mm[Hg] [facility] 07-21-2023 03:42-0400 Heart rate 79 /min [facility] 07-21-2023 03:42-0400 Respiratory rate 16 /min [facility] 07-21-2023 03:42-0400 SaO2% (BldA) [Mass fraction] 97 % [facility] 07-21-2023 03:42-0400 Systolic blood pressure 149 mm[Hg] [facility] 02-12-2021 12:58-0400 Body height 172.7 cm Isaias Damon MD Work Phone: [facility] 02-12-2021 12:58-0400 Body temperature 98.4 [degF] Isaias Damon MD Work Phone: [facility] 02-12-2021 12:58-0400 Body weight 113.85 kg Isaias Damon MD Work Phone: [facility] 02-12-2021 12:58-0400 Diastolic blood pressure 81 mm[Hg] Isaias Damon MD Work Phone: [facility] 02-12-2021 12:58-0400 Heart rate 94 /min Isaias Damon MD Work Phone: [facility] 02-12-2021 12:58-0400 SaO2% (BldA) [Mass fraction] 100 % Isaias Damon MD Work Phone: [facility] 02-12-2021 12:58-0400 Systolic blood pressure 125 mm[Hg] Isaias Damon MD Work Phone: [facility] 10-22-2019 17:54-0400 BMI (Body Mass Index) 31.32 kg/m2 [facility] Work Phone: 10-22-2019 17:54-0400 Body Temperature 98.2 [degF] [facility] Work Phone: 10-22-2019 17:54-0400 Body weight 90.72 kg [facility] Work Phone: 10-22-2019 17:54-0400 BP Diastolic 83 mm[Hg] [facility] Work Phone: 10-22-2019 17:54-0400 BP Systolic 120 mm[Hg] [facility] Work Phone: 10-22-2019 17:54-0400 BSA (Body Surface Area) 2.02 m2 [facility] Work Phone: 10-22-2019 17:54-0400 Height 170.18 cm [facility] Work Phone: 10-22-2019 17:54-0400 Pulse (Heart Rate) 83 /min [facility] Work Phone: 10-22-2019 17:54-0400 Pulse Oximetry 97 % [facility] Work Phone: 10-22-2019 17:54-0400 Respiratory Rate 16 /min [facility] Work Phone: 10-22-2019 17:54-0400 2 1 [facility] Work Phone: Comment on above: Pain Scale 10-18-2019 15:27-0400 BMI (Body Mass Index) 30.54 kg/m2 [facility] [place] 10-18-2019 15:27-0400 Body Temperature 98.01 [degF] [facility] [place] 10-18-2019 15:27-0400 Body weight 88.45 kg [facility] [place] 10-18-2019 15:27-0400 BP Diastolic 83 mm[Hg] [facility] [place] 10-18-2019 15:27-0400 BP Systolic 138 mm[Hg] [facility] [place] 10-18-2019 15:27-0400 Height 170.2 cm [facility] [place] 10-18-2019 15:27-0400 Pulse (Heart Rate) 88 /min [facility] 10-18-2019 15:27-0400 Pulse Oximetry 98 % Carla Clemens [facility] [place] 10-18-2019 15:27-0400 Respiratory Rate 18 /min [facility] [place] [place] Encounters Encounter Date Encounter Type Care Provider Facility Start: 10-30-2024 ambulatory [facility] Facility :[facility] Start: 10-27-2024 End: 10-27-[address] Merrick Mai MD Work Phone: [facility] Work Phone: Start: 10-27-2024 End: 10-27-[address] Alesia Steele MD -[facility] Work Phone: Start: 09-20-2024 End: 09-20-[address] Merrick Mai MD Work Phone: [facility] Work Phone: Start: 09-20-2024 End: 09-20-2024 Patient encounter procedure Brittany Faustin NP-C -Laboratory Specimen Work Phone: Start: 09-20-2024 End: 09-20-2024 ambulatory [facility] Facility:[facility] Start: 09-13-2024 End: 09-13-[address] Merrick Mai MD Work Phone: [facility] Work Phone: Start: 09-13-2024 End: 09-13-2024 Patient encounter procedure Brittany Faustin NP-C -Ultrasound [facility] Work Phone: Start: 09-13-2024 End: 09-13-2024 ambulatory [facility] Facility:[facility] Start: 09-02-2024 End: 09-02-[address] Merrick Mai MD Work Phone: [facility] Work Phone: Start: 09-02-2024 End: 09-02-2024 Patient encounter procedure Brittany Barkman TOOL MAINTENANCE TECHNICIAN-C -Laboratory Work Phone: Start: 09-02-2024 End: 09-02-2024 ambulatory Brittany Faustin Facility:[facility] Start: 08-30-2024 End: 08-30-2024 Patient encounter procedure Brittanyteresa Faustin TOOL MAINTENANCE TECHNICIAN-C -[facility] Work Phone: Start: 08-30-2024 End: 08-30-2024 ambulatory Merrick Mai Facility:[facility] Start: 08-15-2024 End: 08-25-2024 ambulatory Shakila Delgadillo RN [facility] Start: 08-15-2024 End: 08-25-2024 Patient encounter procedure Shakila Delgadillo RN [facility] Start: 10-30-2023 End: 10-30-2023 ambulatory Marbella Betancourt RN [facility] Start: 10-30-2023 End: 10-30-2023 Patient encounter procedure Marbella Betancourt RN [facility] Start: 10-01-2023 ambulatory Rajani Moon RN [facility] Start: 10-01-2023 Patient encounter procedure Rajani Moon RN [facility] Start: 07-21-2023 End: 07-21-2023 Emergency department patient visit [facility]-Emergency Department Work Phone: Start: 12-06-2022 ambulatory Jennifer Kaporo RN [facility] Start: 12-06-2022 Patient encounter procedure Jennifer Kapoor RN [facility] Start: 04-01-2021 Telephone encounter Jennifer patton EXTRUDER OPERATOR HORIZONTAL.[employer]TRID[employer]CH[employer] Work Phone: [facility] Comment on above: Peer To Peer Consult ation Start: 03-17-2021 Orders Only Jennifer Amaya EXTRUDER OPERATOR HORIZONTAL.[employer]ID[employer]CHER Work Phone: [facility] Comment on above: Spinal stenosis of c ervical region (Primary Dx); Claustrophobia Start: 03-08-2021 End: 03-08-2021 Subsequent hospital visit by physician Merrick Mai MD Work Phone: [facility] Start: 02-12-2021 End: 02-12-2021 Patient encounter procedure Isaias Damon MD Work Phone: [facility] Comment on above: Spinal stenosis of c ervical region Start: 02-20-2020 End: 02-20-2020 Subsequent hospital visit by physician Iván Hubbard Work Phone: [facility] Radiology Start: 10-18-2019 End: 10-18-2019 Emergency department patient visit Carla [facility] Comment on above: Allergic reaction, i nitial encounter (Primary Dx) Procedures Date Procedure Procedure Detail Performing Clinician Start: 09-20-[address] Merrick Mai MD Work Phone: Comment on above: Follicular phase 0.1 - 0.9 Luteal phase 1.8 - 23.9 Ovulation phase 0.1 - 12.0 First trimester 11.0 - 44.3 Second trimester 25.4 - 83.3 Third trimester 58.7 - 214.0 Postmenopausal 0.0 - 0.1Performed at: [facility] [address] [id number] Director: Boni Lopez PhD, Phone: [phone] Start: 09-13-[address] Janett Mai MD Work Phone: Start: 03-08-2021 Comprehensive metabo lic panel Merrick Mai MD Work Phone: Start: 03-08-2021 Lipid panel Merrick Mai MD Work Phone: Start: 03-08-2021 Lipid 1996 panel - S cherelle or Plasma Jennifer Kapoor RN Start: 10-22-2019 Follow-up visit Plan of Treatment Date Care Activity Detail Author Start: 2054 RSV Immunization age d 60 or older (1 - 1-dose 60+ series) RSV Immunization aged 60 or older (1 - 1-dose 60+ series) [facility] Start: 2044 Zoster Vaccines (1 of 2) Zoste r Vaccines (1 of 2) [facility] Start: 11-06-2026 Lipid panel Lipid Panel [facility] Start: 01-02-2024 Influenza vaccination Influenz a Vaccine (Season Ended) [facility] Start: 07-21-2023 [facility] Start: 01-01-2023 COVID-19 Vaccine ( season) COVID-19 Vaccine ( season) [facility] Start: 01-01-2023 Influenza vaccination Influenza Vacc ine (#1) [facility] Start: 01-01-2021 Influenza vaccination S [facility] Start: 01-02-2020 Influenza vaccination M [place], [place] Start: 12-24-2015 PAP TESTING PAP TESTING [facility] Start: 12-24-2015 Screening for malign ant neoplasm of cervix [facility] Start: 2013 DTaP/Tdap/Td vaccine (1 - Tdap) DTaP/Tdap/Td vaccine (1 - Tdap) [facility] Start: 2013 DTaP/Tdap/Td Vaccine s (1 - Tdap) DTaP/Tdap/Td Vaccines (1 - Tdap) [facility] Start: 2013 Hepatitis B Vaccines (1 of 3 - 19+ 3-dose series) Hepatitis B Vaccines (1 of 3 - 19+ 3-dose series) [facility] Start: 2013 Urine microalbumin profile DTAP,TDAP,TD (1 - Tdap) [facility] Start: 2012 HEPATITIS C [facility]CRE[facility] Start: 2012 Hepatitis C screening Hepatitis C [facility] Start: 2012 HIV SCREENING HIV SCREENING [facility] Start: 2010 Screening for Chlamy beatris trachomatis Chlamydia screen [place] Start: 2009 HIV screening HIV screen [facility] Start: 12-24-2007 Varicella vaccination Varicell a Vaccines (1 of 2 - 13+ 2-dose series) [facility] Start: 2006 Adult depression screening assessment DEPRESSION SCREENING [facility] Start: 2006 COVID-19 VACCINE (1) COVID-19 VACCIN E (1) [facility] Start: 2005 HPV vaccine (1 - 2-d ose series) HPV vaccine (1 - 2-dose series) [facility] Start: 12-24-1999 COVID-19 VACCINE (1) COVID-19 VACCIN E (1) [facility] Start: 12-24-1995 MMR Vaccines (1 of 1 - Standard series) MMR Vaccines (1 of 1 - Standard series) [facility] Start: 12-24-1995 Varicella vaccination Varicell a Vaccines (1 of 2 - 2-dose childhood series) [facility] Start: 12-24-1995 Varicella vaccine (1 of 2 - 2-dose childhood series) [facility] Start: 06-25-1995 COVID-19 Vaccine (#1) COVID-19 Vacci ne (#1) [facility] Start: 1994 Hepatitis B Vaccines (1 of 3 - 3-dose series) Hepatitis B Vaccines (1 of 3 - 3-dose series) [facility] Start: 1994 Hepatitis C screening Hepatitis C sc reen [facility] Start: 1994 HIV screening HIV Screening [facility] End: 03-14-2022 Mri spinal canal cervical w/o contrast matrl MRI CERVICAL SPINE WO IVCON Radiology Routine Spinal stenosis of cervical region 1 Occurrences starting 02/12/2021 until 03/14/2022 [facility] Comment on above: 1 Occurrences starti ng 02/12/2021 until 03/14/2022 Patient Education [facility] Work Phone: Patient referral [facility] Work Phone: Serum progesterone measurement [facility] End: 02-20-2020 XR CERVICAL SPINE (4-5 VIEWS) XR CERVICAL SPINE (4-5 VIEWS) Imaging Routine Once for 1 Occurrences starting 02/20/2020 until 02/20/2020 [facility] Comment on above: Once for 1 Occurrenc es starting 02/20/2020 until 02/20/2020 XR CERVICAL SPINE (4 -5 VIEWS) XR CERVICAL SPINE (4-5 VIEWS) Imaging Routine 02/20/2020 4:16 PM EDT [facility] Payers Date Payer Category Payer Self-pay [id number] 2024 Unknown [id number] 2020 Unknown [id number] Unknown [place] [id number] Unknown [facility] [id number] Unknown [facility] [id number] Unknown [id number] [id number] [id number] Unknown [id number] Unknown [id number] [id number] Unknown [id number] [id number] Unknown [id number] [id number] Social History Date Type Detail Facility Start: 10-18-2019 End: 10-27-2024 Tobacco smoking status NHIS Never smoker [place] Start: 10-18-2019 Alcohol intake Ex-drinker (finding) [place] Start: 1995 Sex Assigned At Not on file [place], [place] Exposure to SARS-CoV-2 (event) Unable to assess [place] Start: 10-18-2019 End: 02-12-2021 Tobacco use and exposure Never used [place] Exposure to SARS-CoV-2 (event) Not sure [facility] Gender identity Not on file [facility] Start: 07-21-2023 Tobacco smoking status NJIS Unknown if ever smoked [facility] Start: 1995 Sex Assigned At Female [facility] Start: 12-01-2021 Sex Female (finding) [facility] NEGATED: Highlighted row - - [facility] Work Phone: Functional Status Date Assessment Result Facility NEGATED: Highlighted row Functional performance Functional status health issues are not documented Disease [facility] Work Phone: Mental Status Date Assessment Result Facility NEGATED: Highlighted row Cognitive function [Interpretation] Cognitive status health issues are not documented Disease [facility] Work Phone: Clinical Notes 02-12-2021 to 09-14-2024 Note Date & Type Note Facility 09-14-2024 Radiology Diagnostic study note [facility] Imaging Services [address], [place] [address] Pelvic w/ Transvaginal MR#: [id number] Acct: [id number] Name: MARQUIS BARBER Rep #: [id number] : 1995 F 28 From: Ho Sepulveda MD PCP: Dr. Merrick Mai MD Status: REG CLI Study:Pelvic w/ Transvaginal Date of Exam: 09/13/24 Exam# [id number] Ordering Dr: Brittany Faustin TOOL MAINTENANCE TECHNICIAN-C PROCEDURE: PELVIC W/ TRANSVAGINAL 09/13/2024 REASON FOR EXAM: INFERTILITY TECHNIQUE: Transabdominal and transvaginal pelvic ultrasound FINDINGS: Transabdominal and transvaginal imaging. The uterus measures 8.2 by 4.7 by 2.9 cm and appears within limits. 6 mm homogeneous appearing endometrial stripe. Small amount of fluid is seen within the endocervical canal. The right ovary measures 2.6 x 1.6 x 1.5 cm and appears within limits. Evidenceof vascular flow is seen. Left ovary measures 4.7 x 2.8 x 1.9 cm and contains a couple of simple appearingcysts. Largest measures 2.5 x 1.6 x 1.6 cm. Evidence of ovarian vascular flow is seen. No evidence of adnexal mass. No free fluid seen. Bladder volume 756 cc. US/Pelvic w/ Transvaginal IMPRESSION: A couple of simple appearing cysts/follicles left ovary largest measures up to 2.5 cm. No free fluid seen. Reading Location: [id number] CC: SANDEE Faustin; Dr. Merrick Mai MD ~ Diagnostic Assistant: Signed [facility] 08-30-2024 Evaluation note Diagnosis Onset Date Resolution Infertility, female acute August 30, 2024 2:52pm [facility] Work Phone: [phone]) 681-918404-15-2025 Telephone encounter Note* Telephone Encounter - Shakila Delgadillo RN - 08/15/2024 3:49 PM EDT S: Patient spoke with [facility] nurse regarding appointment request. B: Onset of symptoms/concern today. A: Patient reports she received a voicemail from the office today stating she needs to reschedule her appointment for the end of this month. Patient is requesting to reschedule now. R: Patient warm-transferred to [facility], back line office staff member at this time for further assistance with scheduling. No further needs at this time. Reason for Disposition General information question, no triage required and triager able to answer question Protocols used: Information Only Call - No [id number] [id number] Miscellaneous Notes* Telephone Encounter - Shakila Delgadillo RN - 08/15/2024 3:49 PM EDT S: Patient spoke with [facility] nurse regarding appointment request. B: Onset of symptoms/concern today. A: Patient reports she received a voicemail from the office today stating she needs to reschedule her appointment for the end of this month. Patient is requesting to reschedule now. R: Patient warm-transferred to [facility], back line office staff member at this time for further assistance with scheduling. No further needs at this time. 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 [place], she has been feeling weak and exhausted. States her urine is a little darker than normal but better than what it was. No sun burn, muscle cramps, or feeling of fever. States she would like to be evaluated. R: Home care discussed and patient advised note will be sent to office regarding her symptoms and requests. No appropriate appointment available. Patient advised t call back during office hours to schedule an appointment. Patient understands care advice. No further needs at this time. Patient instructed to call back with new or worsening symptoms. Reason for Disposition Normal hot, flushed (pink) skin from heat exposure Protocols used: Heat Exposure (Heat Exhaustion and Heat Stroke)-ADULT-AH 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 [place], she has been feeling weak and exhausted. States her urine is a little darker than normal but better than what it was. No sun burn, muscle cramps, or feeling of fever. States she would like to be evaluated. R: Home care discussed and patient advised note will be sent to office regarding her symptoms and requests. No appropriate appointment available. Patient advised t call back during office hours to schedule an appointment. Patient understands care advice. No further needs at this time. Patient instructed to call back with new or worsening symptoms. Reason for Disposition Normal hot, flushed (pink) skin from heat exposure Protocols used: Heat Exposure (Heat Exhaustion and Heat Stroke)-ADULT-AH documented in this [facility]05-31-2024 Telephone encounter Note* Telephone Encounter - Rajani Moon RN - 10/01/2023 7:09 AM EDT S: Patient spoke with [facility] nurse regarding Kidney infection. B: Onset of symptoms started 3 days ago. A: L flank pain, Difficulty to urinate, chills and sweaty, burning with urination and frequency.drinking fluids, started AZO. R: Appointment scheduled, address given to the patient, instructed to bring photo ID, insurance info and medication list to the appointment. Patient understands care advice. No further needs at this time. Patient instructed to call back with new or worsening symptoms. Reason for Disposition Side (flank) or lower back pain present Protocols used: Urinary Yowiwvae-EQRZB-NS [facility] [id number] Miscellaneous Notes* Telephone Encounter - Rajani Moon RN - 10/01/2023 7:09 AM EDT S: Patient spoke with [facility] nurse regarding Kidney infection. B: Onset of symptoms started 3 days ago. A: L flank pain, Difficulty to urinate, chills and sweaty, burning with urination and frequency.drinking fluids, started AZO. R: Appointment scheduled, address given to the patient, instructed to bring photo ID, insurance info and medication list to the appointment. Patient understands care advice. No further needs at this time. Patient instructed to call back with new or worsening symptoms. Reason for Disposition Side (flank) or lower back pain present Protocols used: Urinary Sjqswcbw-FIQOI-GO documented in this [facility]08-06-2023 Telephone encounter Note* Telephone Encounter - Jennifer Kapoor RN - 12/06/2022 2:24 PM EDT S: pt calling [facility] with eye swelling B: onset this morning A: left eye swollen and painful where the bump was. Last night eyebrow had what looked like a pimple on it so she tried to pop it. Tried warm compresses, and potato, and cucumber. Denies discharge. Denies redness. Does not feel like she has a fever. Denies rash. R: advised pt that there are no appts this RN can schedule for tomorrow but will send message to office for further instructions, also advised pt to call back with any worsening symptoms or other concerns, pt verbalized understanding. Reason for Disposition MODERATE-SEVERE eyelid swelling on one side (Exception: due to a mosquito bite) Protocols used: Eye - Hxjqxcrp-JGBAT-RS [facility] [id number] Miscellaneous Notes* Telephone Encounter - Jennifer Kapoor RN - 12/06/2022 2:24 PM EDT S: pt calling [facility] with eye swelling B: onset this morning A: left eye swollen and painful where the bump was. Last night eyebrow had what looked like a pimple on it so she tried to pop it. Tried warm compresses, and potato, and cucumber. Denies discharge. Denies redness. Does not feel like she has a fever. Denies rash. R: advised pt that there are no appts this RN can schedule for tomorrow but will send message to office for further instructions, also advised pt to call back with any worsening symptoms or other concerns, pt verbalized understanding. Reason for Disposition MODERATE-SEVERE eyelid swelling on one side (Exception: due to a mosquito bite) Protocols used: Eye - Ybdtdmhr-DZICA-JZ documented in this encounterSFlower [id number] NoteHNO ID: [id number] Author: Erick Friedman, DO Service: ? Author Type: Physician Type: Progress Notes Filed: 05/16/2021 4:07 PM Note Text: UNIVERSAL PROTOCOL / SAFETY CHECKLIST Procedure to be Performed: EMG Sign In: A Moment of CARE was completed. Personnel directly involved with the procedure wore the appropriate PPE (Personal Protective Equipment). Patient/Surrogate Stated/Verified: PATIENT VERIFIED(optional for EMERGENT procedures): Patient name, Date of , Relevant allergies and The intended procedure Time Out Communication: Intended patient and procedure match the source documents. Correct side/site marked and visible. Sign Out: SIGN OUT (optional for EMERGENT procedures): Post-procedure follow-up management communicated and Plan of Care Visit completed when applicable. Erick Friedman, [facility]12-22-2021 NoteHNO ID: [id number] Author: Isaias Damon MD Service: ? Author Type: Physician Type: Progress Notes Filed: 04/23/2021 3:51 PM Note Text: Isaias Damon M.D. [facility] General Orthopedics - Orthopedic Spine Surgeon SPINE SURGERY FOLLOW UP VISIT [address] [facility], [facility] [address] [facility] [address] [address] [facility] [address], [facility] [address] Phone: [phone] ([place] [employer]) FAX: [phone] ([employer]) SERVICE DATE: 04/23/2021 PCP: No primary care provider on file. CHIEF COMPLAINT: neck pain HISTORY OF PRESENT ILLNESS Marquis Barber is a 25 year old female who presented on 02/12/2021 as a new patient for evaluation of cervical neck pain. She reported a 5 year history of neck pain with radiation to the right upper extremity. She noted numbness/tingling in the forearm into the first three digits. At its worst, she will experience this into the entire hand as well as in her left hand. She denied balance issues, bowel or bladder changes. Per patient, prior EMG demonsated no evidence of carpal tunnel and positive for a right cervical radiculopathy. She was asked to obtain an MRI of cervical spine and follow up afterwards, prompting her visit today. Today she states continues to have neck pain raidating in radial aspect of right upper extremity. She reports numbness in the first 3 digits in her right hand. She has associated weakness in right hand, reports difficulty with fine motor activity. Denies difficulty with gait/balance. Denies issues with bowel/bladder. She reports she has had a prior EMG/Nerve conduction test completed several years ago, results not available to view. PREVIOUS CONSERVATIVE TREATMENTS: Pain Management: July 2020- til present Injections: cervical MARLYN on 02/27/21- helpful for 1 month Physical therapy- 2016 Gabapentin Celebrex PREVIOUS SPINE SURGERIES: Denies The following portions of the patient's history were reviewed and updated as appropriate: allergies, current medications, past family history, past medical history, past social history, past surgical history and problem list. ACTIVE PROBLEM LIST Spinal Stenosis of Cervical Region History reviewed. No pertinent past medical history. PAST SURGICAL HISTORY Procedure Laterality Date - EPI CERV OR THORC W/IMAGING - EXTRACTION ERUPTED TOOTH/EXR History reviewed. No pertinent family history. Social History Tobacco Use - Smoking status: Never Smoker - Smokeless tobacco: Never Used Substance Use Topics - Alcohol use: Not on file - Drug use: Not on file ALLERGIES No Known Allergies MEDICATIONS: gabapentin (NEURONTIN) 300 mg capsule Take 300 mg by mouth twice daily. celecoxib (CELEBREX) 200 mg capsule Take 200 mg by mouth twice daily. sertraline (ZOLOFT) 100 mg tablet Take 100 mg by mouth twice daily. 0.5 tablets bid lidocaine (LIDODERM) 5 % Apply 1 Patch as directed every 24 hours. aspirin/acetaminophen/caffeine (EXCEDRIN EXTRA STRENGTH ORAL) Take by mouth. REVIEW OF SYSTEMS Review of Systems Constitutional: Negative for chills, diaphoresis and fever. HENT: Negative for congestion, drooling and tinnitus. Eyes: Negative for photophobia, redness and visual disturbance. Respiratory: Negative for cough, shortness of breath and wheezing. Cardiovascular: Negative for chest pain, palpitations and leg swelling. Gastrointestinal: Negative for constipation, diarrhea, nausea and vomiting. Endocrine: Negative for cold intolerance and heat intolerance. Genitourinary: Negative for difficulty urinating, dysuria, frequency and urgency. Musculoskeletal: Positive for neck pain. Negative for gait problem. Skin: Negative for rash and wound. Allergic/Immunologic: Negative for environmental allergies and food allergies. Neurological: Positive for numbness. Negative for dizziness, weakness and light-headedness. Hematological: Negative for adenopathy. Does not bruise/bleed easily. Psychiatric/Behavioral: Negative for agitation and confusion. The patient is not nervous/anxious. I have confirmed and edited as necessary, the PFSH and ROS obtained by others. PROMIS Score Percentiles Percentiles provide an indication of how the patient's score ranks in relation to the general population. Higher percentile rankings indicate better function/quality of life. 50th percentile is the average of the general population and indicates half of respondents had a worse score. OBJECTIVE: PHYSICAL EXAM BP 128/78 (BP Site: Left Arm, BP Position: Sitting, BP Cuff Size: Regular Adult) Pulse 68 Temp 36.3 ?C (97.4 ?F) Ht 5' 8 (1.727 m) Wt 250 lb (113.4 kg) LMP 01/20/2021 (Approximate) SpO2 97% BMI 38.01 kg/m? Upper Extremity Strength Exam Right Left Deltoid 5 5 Biceps 5 5 Triceps 5 5 Wrist Extension 5 5 Interossei 5 5 Lower extremities: Sensation: Intact to light touch Lower Extremity Strength Exam Right Left Pso (more content not included)...[facility]12-[facility] NoteHNO ID: [id number] Author: RT Dary(Aria) Service: ? Author Type: Technologist Type: Progress Notes Filed: 04/11/2021 8:12 AM Note Text: Radiology Service Progress Note PATIENT NAME: Marquis PRETTY DATE OF SERVICE: April 11, 2021 TIME: 8:11 AM PATIENT IDENTITY VERIFICATION COMPLETED USING TWO (2) IDENTIFIERS: Name and Date of confirmed by patient verbally. FALL SCREENING: Has the patient had 2 falls in the last year or 1 fall with injury or currently using an Ambulatory Assistive Device (Walker, Cane, Wheelchair, Crutches, etc.)? No PATIENT GENDER DATA: Female. status: : No status: NO. PATIENT RELEVANT IMPLANT DATA REVIEWED: Yes RADIOLOGY DEPARTMENT: MR; Exam(s) Completed: Spine: Cervical spine PERIPHERAL IV DATA: Not applicable SIGNED BY: RT Dary(R) April 11, 2021 8:11 [facility]11-30-2021 Miscellaneous Notes* Telephone Encounter - Jennifer Amaya APRN.[employer] - 04/01/2021 8:20 AM EST [id number] completed for denial of MRI of cervical spine. Additional information provided to insurance company. Upon further review and additional information approval for MRI of cervical spine hasbeen obtained. Authorization #[id number]. Valid from March 17, 2021 until May 30, 2021. CELSO Frausto Neurosurgery Nurse Practitioner [facility] 04/01/2021 8:21 AM [facility]-2021 NoteHNO ID: [id number] Author: Jennifer Amaya APRN.CNP Service: ? Author Type: Nurse Practitioner Type: Progress Notes Filed: 03/17/2021 11:51 AM Note Text: Patient is in need of anxiolysis prior to medical procedure. OARRS reviewed. All prescriptions have been APPROPRIATELY filled. No suspicious activity was identified. Prescription approved, signed and sent to patients pharmacy on file. CELSO Frausto Neurosurgery Nurse Practitioner [facility] 11:51 AM 03/17/2021[facility]11-15-2021 History of Present illness Narrative* Jennifer Amaya APRN.CNP - 03/17/2021 11:49 AM EST Patient is in need of anxiolysis prior to medical procedure. OARRS reviewed. All prescriptions have been APPROPRIATELY filled. No suspicious activity was identified. Prescription approved, signed and sent to patients pharmacy on file. CELSO Frausto Neurosurgery Nurse Practitioner [facility] 11:51 AM 03/17/2021 documented in this [facility]-13-2021 NoteHNO ID: [id number] Author: Isaias Damon MD Service: ? Author Type: Physician Type: Progress Notes Filed: 02/12/2021 1:18 PM Note Text: Isaias Damon M.D. [facility] Orthopedics - Orthopedic Spine Surgeon [address] [facility], [facility] [address] [address] [facility] [address] [address], [facility] [address] Phone: [phone] ([facility]) FAX: [phone] ([place]) SPINE SURGERY OUTPATIENT CONSULT SERVICE DATE: 02/12/2021 PCP: No primary care provider on file. CHIEF COMPLAINT: neck pain HISTORY OF PRESENT ILLNESS Marquis Barber is a 25 year old female presenting with mother. The patient presents as a new patient with X-ray imaging of her cervical spine. She describes 5 years of neck pain with radiation to the right upper extremity. She describes numbness/tingling in the forearm into the first three digits. At its worst, she will experience this into the entire hand as well as in her left hand. She denies balance issues, bowel or bladder changes. Per patient, prior EMG demonsated no evidence of carpal tunnel. It was positive for a right cervical radiculopathy. PREVIOUS CONSERVATIVE TREATMENTS: Pain Management -[employer] MAR[facility]N Physical Therapy PREVIOUS SPINE SURGERIES: Denies The following portions of the patient's history were reviewed and updated as appropriate: allergies, current medications, past family history, past medical history, past social history, past surgical history and problem list. There is no problem list on file for this patient. History reviewed. No pertinent past medical history. PAST SURGICAL HISTORY Procedure Laterality Date - EXTRACTION ERUPTED TOOTH/EXR History reviewed. No pertinent family history. Social History Tobacco Use - Smoking status: Never Smoker - Smokeless tobacco: Never Used Substance Use Topics - Alcohol use: Not on file - Drug use: Not on file ALLERGIES No Known Allergies MEDICATIONS: gabapentin (NEURONTIN) 300 mg capsule Take 300 mg by mouth twice daily. celecoxib (CELEBREX) 200 mg capsule Take 200 mg by mouth twice daily. sertraline (ZOLOFT) 100 mg tablet Take 100 mg by mouth twice daily. 0.5 tablets bid lidocaine (LIDODERM) 5 % Apply 1 Patch as directed every 24 hours. aspirin/acetaminophen/caffeine (EXCEDRIN EXTRA STRENGTH ORAL) Take by mouth. REVIEW OF SYSTEMS Review of Systems Constitutional: Negative for chills, diaphoresis and fever. HENT: Negative for congestion, drooling and tinnitus. Eyes: Negative for photophobia, redness and visual disturbance. Respiratory: Negative for cough, shortness of breath and wheezing. Cardiovascular: Negative for chest pain, palpitations and leg swelling. Gastrointestinal: Negative for constipation, diarrhea, nausea and vomiting. Endocrine: Negative for cold intolerance and heat intolerance. Genitourinary: Negative for difficulty urinating, dysuria, frequency and urgency. Musculoskeletal: Positive for back pain and neck pain. Negative for gait problem. Skin: Negative for rash and wound. Allergic/Immunologic: Negative for environmental allergies and food allergies. Neurological: Negative for dizziness, weakness, light-headedness and numbness. Hematological: Negative for adenopathy. Does not bruise/bleed easily. Psychiatric/Behavioral: Negative for agitation and confusion. The patient is not nervous/anxious. I have confirmed and edited as necessary, the PFSH and ROS obtained by others. PROMIS Score Percentiles Percentiles provide an indication of how the patient's score ranks in relation to the general population. Higher percentile rankings indicate better function/quality of life. 50th percentile is the average of the general population and indicates half of respondents had a worse score. OBJECTIVE: PHYSICAL EXAM BP 125/81 (BP Site: Left Arm, BP Position: Sitting, BP Cuff Size: Large Adult) Pulse 94 Temp 36.9 ?C (98.4 ?F) Ht 172.7 cm (5' 8) Wt 113.9 kg (251 lb) LMP 01/20/2021 (Approximate) SpO2 100% BMI 38.16 kg/m? Upper Extremity Strength Exam Right Left Deltoid 5 5 Biceps 5 5 Triceps 5 5 Wrist Extension 5 5 Interossei 5 5 Lower extremities: Sensation: Intact to light touch Lower Extremity Strength Exam Right Left Psoas 5 5 Quadriceps 5 5 DF 5 5 EHL 5 5 PF 5 5 GAIT: Able to perform toe and heel walk. Able to perform tandem gait. LONG TRACT SIGNS: No clonus. No Hoffmanns. REFLEXES: symmetric non-brisk DATA REVIEW EMG with evidence of right arm radiculopathy No new images today I personally performed the services described in this note, as scribed by (Daria Elder RN) in my presence, and the note is both complete and accurate. ASSESSMENT/PLAN The clinical and radiographic findings as well as the risks, benefits and alternatives of treatment have been reviewed in detail with the patient. Marquis Barber has a condition th (more content not included)...[facility]10-13-[facility] History of Present illness Narrative* Isaias Damon MD - 02/12/2021 1:00 PM EDT Images from the original note were not included. Isaias Damon M.D. [facility] [place] General Orthopedics - Orthopedic Spine Surgeon [address] [facility], [address], [facility] [address] [address] [facility] [address], [facility] [address] Phone: [phone] (3914) FAX: [phone] ([place]) SPINE SURGERY OUTPATIENT CONSULT SERVICE DATE: 02/12/2021 PCP: No primary care provider on file. CHIEF COMPLAINT: neck pain HISTORY OF PRESENT ILLNESS Marquis Barber is a 25 year old female presenting with mother. The patient presents as a new patient with X-ray imaging of her cervical spine. She describes 5 years of neck pain with radiation to the right upper extremity. She describes numbness/tingling in the forearm into the first three digits. At its worst, she will experience this into the entire hand as well as in her left hand. She denies balance issues, bowel or bladder changes. Per patient, prior EMG demonsated no evidence of carpal tunnel. It was positive for a right cervical radiculopathy. PREVIOUS CONSERVATIVE TREATMENTS: Pain Management -[employer] MARLYN Physical Therapy PREVIOUS SPINE SURGERIES: Denies The following portions of the patient's history were reviewed and updated as appropriate: allergies, current medications, past family history, past medical history, past social history, past surgicalhistory and problem list. There is no problem list on file for this patient. History reviewed. No pertinent past medical history. PAST SURGICAL HISTORY Procedure Laterality Date EXTRACTION ERUPTED TOOTH/EXR History reviewed. No pertinent family history. Social History Tobacco Use Smoking status: Never Smoker Smokeless tobacco: Never Used Substance Use Topics Alcohol use: Not on file Drug use: Not on file ALLERGIES No Known Allergies MEDICATIONS: gabapentin (NEURONTIN) 300 mg capsule Take 300 mg by mouth twice daily. celecoxib (CELEBREX) 200 mg capsule Take 200 mg by mouth twice daily. sertraline (ZOLOFT) 100 mg tablet Take 100 mg by mouth twice daily. 0.5 tablets bid lidocaine (LIDODERM) 5 % Apply 1 Patch as directed every 24 hours. aspirin/acetaminophen/caffeine (EXCEDRIN EXTRA STRENGTH ORAL) Take by mouth. REVIEW OF SYSTEMS Review of Systems Constitutional: Negative for chills, diaphoresis and fever. HENT: Negative for congestion, drooling and tinnitus. Eyes: Negative for photophobia, redness and visual disturbance. Respiratory: Negative for cough, shortness of breath and wheezing. Cardiovascular: Negative for chest pain, palpitations and leg swelling. Gastrointestinal: Negative for constipation, diarrhea, nausea and vomiting. Endocrine: Negative for cold intolerance and heat intolerance. Genitourinary: Negative for difficulty urinating, dysuria, frequency and urgency. Musculoskeletal: Positive for back pain and neck pain. Negative for gait problem. Skin: Negative for rash and wound. Allergic/Immunologic: Negative for environmental allergies and food allergies. Neurological: Negative for dizziness, weakness, light-headedness and numbness. Hematological: Negative for adenopathy. Does not bruise/bleed easily. Psychiatric/Behavioral: Negative for agitation and confusion. The patient is not nervous/anxious. I have confirmed and edited as necessary, the PFSH and ROS obtained by others. PROMIS Score Percentiles Percentiles provide an indication of how the patient's score ranks in relation to the general population. Higher percentile rankings indicate better function/quality of life. 50th percentile is the average of the general population and indicates half of respondents had a worse score. OBJECTIVE: PHYSICAL EXAM BP 125/81 (BP Site: Left Arm, BP Position: Sitting, BP Cuff Size: Large Adult) Pulse 94 Temp 36.9 C (98.4 F) Ht 172.7 cm (5' 8) Wt 113.9 kg (251 lb) LMP 01/20/2021 (Approximate) SpO2 100% BMI 38.16 kg/m Upper Extremity Strength Exam Right Left Deltoid 5 5 Biceps 5 5 Triceps 5 5 Wrist Extension 5 5 Interossei 5 5 Lower extremities: Sensation: Intact to light touch Lower Extremity Strength Exam Right Left Psoas 5 5 Quadriceps 5 5 DF 5 5 EHL 5 5 PF 5 5 GAIT: Able to perform toe and heel walk. Able to perform tandem gait. LONG TRACT SIGNS: No clonus. No Hoffmanns. REFLEXES: symmetric non-brisk DATA REVIEW EMG with evidence of right arm radiculopathy No new images today I personally performed the services described in this note, as scribed by (Daria Elder RN) in my presence, and the note is both complete and accurate. ASSESSMENT/PLAN The clinical and radiographic findings as well as the risks, benefits and alternatives of treatmenthave been reviewed in detail with the patient. Marquis Barber has a condition that requires further workup. EMG with evidence of cervical radiculopathy Recommend cervical spine radiographs MRI cervical spine without contrast Follow up after advanced studies documented in this [facility]* Diagnosis Spinal stenosis of cervical region Spinal stenosis in cervical region documented in this encounter [facility] note* Diagnosis Spinal stenosis of cervical region- Primary Spinal stenosis in cervical region Claustrophobia Other isolated or specific phobias documented in this encounter [facility] noteNo assessment information availableWSt. John of God Hospital Work Phone: Hospital Discharge instructions Additional Instructions After using nasal decongestant spray, you may hold your nose and apply gentle pressure until you feel your ears pop, hold this for a breath and often you can stent the sinuses open. This may need to be done repeatedly as needed. Do not use the decongestant spray more than 3 days in a row, up to every 12 hours. If the sinus congestion/pressure resulted from allergies, then using yzkk-wtz-smvauos nasal fluticasone, which is brand-name Flonase or other names, can help but it does not work immediately since it is a steroid. Benadryl-type medications will not help with this, unless it is allergies. These medications only dry up secretions, they do not take away swelling like decongestants.[facility] Work Phone: Reason for referral (narrative)No reason for referral information availableWSt. 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 * Allergic Reaction (Thai) documented in this encounter Assessments Diagnosis Allergic reaction, initial encounter Reason for Referral Status Reason Specialty Diagnoses / Procedures Referred By Contact Referred To Contact Pending Review Auto-Generated Referral MR IMAGING Diagnoses Spinal stenosis of cervical region Procedures MRI CERVICAL SPINE WO IVCON MRI, CERV SPINE Isaias Damon MD [address] [place] [address] Mr Imaging Chief Complaint and Reason for Visit Chief Complaint JAW PAIN Chief Complaint Admit Date FERTILITY CONSULT August 30, 2024 2:5 2pm E-ORDER September 02, 2024 10:40a m Reason for Visit Admit Date Infertility, 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 ([place]) DATE CREATED AUTHOR AUTHOR'S ORGANIZ ATION 11/18/2019 [facility] DATE CREATED AUTHOR AUTHOR'S ORGANIZ ATION 11/18/2019 [facility] DATE CREATED AUTHOR AUTHOR'S ORGANIZ ATION 02/13/2021 [facility] DATE CREATED AUTHOR AUTHOR'S ORGANIZ ATION 05/20/2021 [facility] DATE CREATED AUTHOR AUTHOR'S ORGANIZ ATION 05/29/2021 [facility] DATE CREATED AUTHOR AUTHOR'S ORGANIZ ATION 2021 [facility] DATE CREATED AUTHOR AUTHOR'S ORGANIZ ATION 08/18/2024 [facility] DATE CREATED AUTHOR AUTHOR'S ORGANIZ ATION 10/26/2024 [facility] Reason for Visit (unrecogniz ed section and content) Reason Comments Allergic Reaction Reason Comments Peer To Peer Consultation Reason Onset Date Comments Conjunctivitis 12/06/2022 Reason Onset Date Comments Urinary Frequency 10/01/2023 Reason Onset Date Comments Heat Exposure 10/30/2023 Reason Onset Date Comments Appointment Request 08/15/2024 Source Comments (unrecognize d section and content) In the event this informatio n is protected by the Federal Confidentiality of Alcohol and Drug Abuse Patient Records regulations: The Federal rules restrict any use of the information to criminally investigate or prosecute any alcohol or drug abuse patient.[facility] the event this information is protected by the Federal Confidentiality of Alcohol and Drug Abuse Patient Records regulations: The Federal rules restrict any use of the information to criminally investigate or prosecute any alcohol or drug abuse patient.[facility] the event this information is protected by the Federal Confidentiality of Alcohol and Drug Abuse Patient Records regulations: The Federal rules restrict any use of the information to criminally investigate or prosecute any alcohol or drug abuse patient.[facility] Care Teams (unrecognized sec tion and content) Lieutenant Fire Fighter Relationship Specialty Start Date End Date Carla Clemens PCP - General 02/11/16 Lieutenant Fire Fighter Relationship Specialty Start Date End Date Merrick Mai MD [facility] [place] [place] [id number] PCP - General 10/18/19 Team Status: Active Member Role Status Dates Dr. Merrick Mai MD Family Provider Active Dr. Merrick Mai MD Primary Care Provider Active Team Status: Inactive Member Role Status Dates Dr. Merrick Mai MD Primary Care Provider Active Dr. Ashwin Lemons MD Emergency Provider Active Lieutenant Fire Fighter Relationship Specialty Start Date End Date Merrick Mai MD [address] [place] [id number] PCP - General 10/18/19 Lieutenant Fire Fighter Relationship Specialty Start Date End Date Merrick Mai MD [address] [place] [phone] PCP - General 10/18/19 Team Status: Active Member Role Status Dates Dr. Merrick Mai MD Primary Care Provider Active Team Status: Inactive Member Role Status Dates Dr. Merrick Mai MD Primary Care Provider Active Start: August 30, 2024 End: August 30, 2024 Dr. Merrick Mai MD Referring Provider Active Start: August 30, 2024 End: August 30, 2024 SANDEE Greene Attending Provider Active Start: August 30, 2024 End: August 30, 2024 Team Status: Inactive Member Role Status Dates Dr. Merrick Mai MD Primary Care Provider Active Start: September 02, 2024 End: September 02, 2024 SANDEE Greene Attending Provider Active Start: September 02, 2024 End: September 02, 2024 SANDEE Greene Referring Provider Active Start: September 02, 2024 End: September 02, 2024 Team Status: Inactive Member Role Status Dates Dr. Merrick Mai MD Primary Care Provider Active Start: September 13, 2024 End: September 13, 2024 SANDEE Greene Attending Provider Active Start: September 13, 2024 End: September 13, 2024 SANDEE Greene Referring Provider Active Start: September 13, 2024 End: September 13, 2024 Team Status: Inactive Member Role Status Dates Dr. Merrick Mai MD Primary Care Provider Active Start: September 20, 2024 End: September 20, 2024 SANDEE Greene Attending Provider Active Start: September 20, 2024 End: September 20, 2024 SANDEE Greene Referring Provider Active Start: September 20, 2024 End: September 20, 2024 Team Status: Inactive Member Role Status Dates Dr. Merrick Mai MD Primary Care Provider Active Start: October 27, 2024 End: October 27, 2024 Dr. Merrick Mai MD Referring Provider Active Start: October 27, 2024 End: October 27, 2024 Dr. Alesia Steele MD Attending Provider Active Start: October 27, 2024 End: October 27, 2024 Goals (unrecognized section and content) Goals may be documented in a n alternate sectionGoals may be documented in an alternate sectionGoals may be documented in an alternate sectionGoals may be documented in an alternate sectionGoals may be documented in an alternate section FOR RECORDS PERTAINING TO PATIENTS WHO ARE OR HAVE BEEN ENROLLED IN A CHEMICAL DEPENDENCY/SUBSTANCEABUSE PROGRAM, SOME INFORMATION MAY BE OMITTED. This clinical summary was aggregated from multiple sources. Caution should be exercised in using it in the provision of clinical care. This summary normalizes information from multiple sources, and as a consequence, information in this document may materially change the coding, format and clinical context of patient data. In addition, data may be omitted in some cases. CLINICAL DECISIONS SHOULD BE BASED ON THE PRIMARY CLINICAL RECORDS. [facility] [employer] provides no warranty or guarantee of the accuracy or completeness of information in this document.
[2024-10-27 23:45] LABS: Color, Urine Yellow (Yellow); Glucose, Dipstick Normal (Normal); Ketone-Dipstick Negative (Negative); Leukocyte Esterase-Dipstick Negative /ul (Negative); Nitrite-Dipstick Negative (Negative); Occult Blood-Urine 50 /ul (Negative); Protein-Dipstick Negative (Negative); Urine Bilirubin Dipstick Negative (Negative); Urine Clarity Clear (Clear); Urine Urobilinogen Normal (Normal); Urine pH 6.5 (5.0 - 8.0)
[2024-10-27 23:54] LABS: Anion Gap 13 (5-15); BUN 9 mg/dL (4-19); BUN/Creat Ratio 13.1 RATIO (10-20); Calcium,Total 9.2 mg/dL (7.6-11.0); Carbon Dioxide 19.2 mmol/L (21.0-32.0); Chloride 106 mmol/L (98-108); Creatinine, Serum 0.68 mg/dL (0.70-1.20); EST Glomerular Filtration Rate 121 (>60); Estimated Creatinine Clearance 164.26 ml/min (50-250); Glucose 93 mg/dL (70-99); Potassium 3.9 mmol/L (3.3-5.1); Sodium Level 138 mmol/L (133-145)
[2024-10-28 00:05] LABS: Absolute Lymphocyte Count 2.47 X10^3/uL (0.83-4.51); Absolute Neutrophil Count 4.2 X10^3/uL (2.0-7.7); Basophil# 0.07 X10^3/uL; Basophil% 0.9 % (0-1); Eosinophil# 0.16 X10^3/uL; Eosinophils% 2.1 % (0-5); Hematocrit 36.9 % (37-47); Hemoglobin 12.4 g/dL (12.0-15.0); Lymphocyte # 2.47 X10^3/ul (0.83-4.51); Lymphocyte % 32.4 % (19-41); Mean Corp Hgb Conc 33.6 g/dL (32-36); Mean Corpuscular Hgb 27.8 pg (27.0-32.0); Mean Corpuscular Volume 82.7 fL (81-99); Mean Platelet Vol. 11.2 fl (6.2-12.0); Monocyte# 0.69 X10^3/uL; Monocyte% 9.1 % (0-10); NRBC Flagged by Analyzer 0 % (0-5); Neutrophil % 55.1 % (47-70); POSITIVE COUNT YES; RBC Distribution Width CV 13.4 % (11.6-14.6); Red Blood Count 4.46 M/mm3 (4.2-5.4); White Blood Count 7.6 K/mm3 (4.4-11.0)
[2024-10-28 00:10] LABS: Differential Indicated SCAN CRITERIA MET
[2024-10-28 00:41] LABS: Platelet Count 253 K/mm3 (150-450)
[2024-10-28 00:47] VITALS: BP 129/84; PULSE 81; RESP 16; O2SAT 99
[2024-10-28 01:45] VITALS: BP 124/75; PULSE 75; RESP 16; TEMP 36.6; O2SAT 99
== END 2024-10-28 01:46 | disposition home or self-care (01) ==
PROVIDERS: Emergency Provider Emergency Medicine; PCP Family Medicine; Visit Provider Emergency Medicine
DX: O20.0 Threatened abortion (principal); O09.01 Supervision of pregnancy with history of infertility, first trimester; Z3A.08 8 weeks gestation of pregnancy
CPT/HCPCS: 76817; 80048; 81001; 84702; 85025; 86900; 86901; 99282; A4216

== ENCOUNTER 2024-10-31 13:40 | Day surgery (SDC) | payer OTHER, SELFPAY ==
[2024-10-31] VITALS (9 sets, daily range): BP systolic 115–127; BP diastolic 64–78; PULSE 70–88; RESP 12–16; TEMP 36.4–37.3; O2SAT 97–100; BMI 39.3
--- NOTE | 2024-10-31 07:17 | HP.PCM_ITS ---
History and Physical Date of Admission: 10/31/24 Intake Vital Signs 08/30/2513:56 10/27/2521:47 10/30/2513:26 Height 5 ft 7 in 5 ft 7 in 5 ft 7 in Weight: 261 lb 2 oz BMI 40.8 BP 126/79 H Intake Visit Reasons: *EST* NOB LMP 08/31, MIKO 06/07 Clerk Required: No Is patient in pain?: No Allergies No Known Allergies Allergy (Verified 10/30/24 14:31) Medications ?Medication ?Instructions ?Recorded ?Confirmed ?Type acetaminophen 325 mg capsule 325 mg PO Q6H PRN pain 07/03/18 10/30/24 History (Tylenol) magnesium carb,citrate,oxide 500 mg PO DAILY 08/30/24 10/30/24 Histor y (Magnesium Complex) Lactobacillus acidophilus 1 1,000 mmu cells PO QDAY 10/27/24 5 History billion cell capsule (Probiotic Gold Acidophilus) multivitamin no.47-iron fum 27 1 cap PO DAILY 10/27/24 10/30/24 History mg-folate no.1 1 mg-dha 300 mg capsule (PNV-DHA) Last Menstrual Period: 08/31/24 Zika: Zika virus screening: Negative : No PFSH PFSH Medical History PTSD (post-traumatic stress disorder) Depression Anxiety Chronic neck and back pain Fatigue Shortness of breath Social History adopted: No household members: spouse housing: house number of children: 0 current occupational status: employed 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) pets and animals: Yes (Avoid litterbox) pets and animals: cat(s) and dog(s) history of recent travel: No sexually active: Yes Smoking Status: Never smoker alcohol intake: current alcohol intake frequency: holidays/special occasions only details: Not while substance use type: does not use diet: other well-balanced diet: daily or most days caffeine: Yes Type: coffee Number of servings: 1 eating out: rarely or never during the past year weight has: remained stable what type of physical activity do you participate in: walking frequency: 3-4 times per week duration: 30-45 minutes/day khadar/denominational: None seatbelt use: always do you feel safe at home: Yes additional social history: Yoseph- . 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 she had early bleeding last week and was jalyn in the ER and had a viable IUP ad small suchorionic hematoma, today the hematoma is resovled but pole seen no fht seen no color doppler flow seen and measuring 7w3d enlarged yolk sac. confirmed demise. OB Visit MIKO Calculator Estimated Delivery Date Method Current WG Current Estimate 06/15/25 Ultrasound #1 7w 3d Other Estimates 06/07/25 LMP (Certain) 8w 4d Estimated Due Date: 06/07/25 Initial Weight: Not Recorded Date -?-?-?-?-?-?-?-?-?-?-?-?- EGA Weight BP Urine Prot -?-?-?-?-?-?-?-?-?-?-?-?- Glucose FHR FuHt Pres Dilation -?-?-?-?-?-?-?-?-?-?-?-?- Effaced St Visit Note 10/30/24-?-?-?-?-?-?-?-?-?-?-?-?- 7w 3d 261 lb 2 oz 126/79 -?-?-?-?-?-?-?-?-?-?-?-?- -?-?-?-?-?-?-?-?-?-?-?-?- SM- SM- CRL 7w3d cons with LMP no FHT or color doppler flow seen Menstrual History Last Menstrual Period: 08/31/24 Reported LMP: definite Normal amount/duration: Yes Frequency in days: 28 On hormonal BC at conception: No hCG+: 09/26/24 Antepartum Record Genetic Screening: Congenital Heart Defect: Other, Neural Tube Defect: Other, Hemoglobinopathy Or Carrier: Other, Cystic Fibrosis: Other, Chromosome Abnormality: Other, Juan-Sachs: Other, Hemophilia: Other, Intellectual Disability/Autism: Other, Recurrent Loss/Stillbirth: Other, Other Structural Defect: Other, Other Genetic Disease: Other and Maternal Metabolic Disorder: Other Infection History: Live with someone with TB or Exposed to TB: No, Patient or Partner has history of Genital Herpes: No, Rash or Viral illness since last mentrual period: No, Prior GBS-Infected child: No, History of STD: No, HIV Infection: No, History of Hepatitis: No, Recent travel outside of [place]: No, Concern for hepatitis exposure: No, Varicella immune: Yes (immune) and Covid Vaccinated: No Medical History Medical History: Positive: Psychiatric (anxiety, PTSD), Depression/ depression (reactive depression), Infertility (tried to conceive for 1 yr) and Other (obesity) and Negative: Diabetes, Hypertension, Heart disease, Auto-immune disorder, Kidney disease/UTI, Neurologic/epilepsy, Hepatitis/liver disease, Varicosities/phlebitis, Thyroid dysfunction, Trauma/domestic violence, History of blood transfusions, D (Rh) Sensitized, Pulmonary (e.g.,TB,Asthma), Seasonal allergies, Drug/latex allergies/reactions, Breast, Director Skills surgery, Operations/hospitalizations, Anesthetic complications, History of abnormal pap (last pap 2023 ), Uterine anomaly/shayne, Anti-retroviral treatment and Relevant family history ACOG First Trimester First Trimester: Desire for , Alcohol, Tobacco Cessation, Illicit/Recreational Drug/Substance Use, Intimate Partner Violence, Barriers to care, Unstable Housing, Communication Barriers, Environmental/Work Hazards, Anticipated Course of Care, Toxoplasmosis Precations, Use of Any medications, Sexual activity, Exercise, Dental Care, Sauna/Hot tub use, Seat Belt use, Childbirth classes/Hospital facilities, Travel, Indications for Ultrasound and Screening for Aneuploidy; Discussed ROS Const Reports system reviewed and no additional complaints, except as documented, R eports fatigue and Denies fever(s) Eyes Reports system reviewed and no additional complaints, except as documented ENT Reports system reviewed and no additional complaints, except as documented Card Denies chest pain and Denies dyspnea Resp Reports system reviewed and no additional complaints, except as documented, Denies cough and Denies dyspnea GI Denies abdominal pain and Reports nausea Reports system reviewed and no additional complaints, except as documented Musc Reports system reviewed and no additional complaints, except as documented Skin/Breast Reports system reviewed and no additional complaints, except as documented Neuro Yes system reviewed and no additional complaints, except as documented Psych Reports system reviewed and no additional complaints, except as documented Endo Reports system reviewed and no additional complaints, except as documented and Reports fatigue Exam Const General: healthy appearing, comfortable and no acute distress Orientation: alert [facility] Head: normal to inspection, normocephalic and atraumatic Ears: hearing grossly normal bilaterally and external ears normal Nose: external nose normal and nares normal Mouth: oral mucosae normal Teeth and gingiva: dentition normal Eyes General: appearance normal, both eyes and all related structures Neck Neck: normal visual inspection, no lymphadenopathy and supple Thyroid: thyroid normal Chest Chest palpation & inspection: normal inspection of the chest Breast inspection: normal inspection of the breasts and normal inspection of the axillae Breast palpation: normal palpation of the breasts and normal palpation of the axillae Resp Effort & Inspection: normal respiratory effort GI Inspection: normal to inspection Palpation: soft and no hepatosplenomegaly General: bladder normal to palpation External Female Exam: normal external appearance and normal appearance of the urethra Urethra: normal appearance of the urethra Speculum Exam - Vagina: normal appearance of the vagina and normal vaginal discharge Speculum Exam - Cervix: normal appearance of the cervix Bimanual Exam- Vagina & Uterus: normal bimanual exam, bladder normal to palpation, non-tender and other Bimanual Exam- Adnexa, other: non-tender Skin General: no rashes or lesions noted Neuro Motor: muscle tone normal throughout and no movement abnormalities noted Extrem General: normal to inspection and full ROM Supplemental Info ACOG book given and patient encouraged to read about nutrition, exercise, weight gain, and food avoidance in . Coding Level of Care Code Off vis,est,level 4 Diagnoses First trimester bleeding O20.9 Supervision of normal first Z34.00 Obesity affecting O99.210 Reactive depression F32.9 8 weeks gestation of Z3A.08 Weeks of gestation: 8 weeks Infertility, female N97.9 Missed O02.1 Assessment and Plan Assessment and Plan (1) First trimester bleeding: Status: Acute (2) Supervision of normal first : Status: Acute Comment: , MIKO 06/07/25, Yoseph (3) Obesity affecting : Status: Acute Comment: HgbA1c (4) Reactive depression: Status: Acute (5) : Status: Acute Qualifiers: Weeks of gestation: 8 weeks Qualified Code(s): Z3A.08 - 8 weeks gestation of Comment: discussed NIPT & Carrier testing-undecided (6) Infertility, female: Status: Acute (7) Missed : Status: Acute Comment: proceed with suction d and c Plan After discussing the patient's diagnosis and treatment plan options, patient wishes to proceed with surgical management. I have discussed with the patient the risks, benefits, and alternatives of the procedure which include but are not limited to risks of anesthesia, bleeding, infection, possible damage to bowel, bladder, or surrounding vasculature which could lead to additional surgery to evaluate any complications. Patient agrees to procedure and wishes to proceed. ACOG/uptodate references given for additional information regarding procedure.
[2024-10-31] MEDS: Lidocaine 1% (20 ml mdv) 20 ML Vial (14:00)
--- NOTE | 2024-10-31 14:54 | PCM.PRE.AN2 ---
ASA Classification* ASA Classification ASA Classification: 3 Assessment & Plan Anesthesia* Anesthesia Assessment Anesthesia Assessment: Discussed sedation and/or anesthesia options, risks, benefits, and alternatives with patient/parents/legal guardian/POA. Questions invited. The patient/parents/legal guardian/POA seems to understand and agrees to proceed with anesthesia plan. Reviewed the physical assessment, medical history, allergy history and patient home medications list prior to surgery/procedure/anesthetic and documented any changes. Performed airway and anesthesia risk assessments. Anesthesia Type Anesthesia Type: MAC (we discussed MAC, with GA as backup. all patient questions answered) History Source History Obtained from:: Patient and Chart Anesthesia Focused Assessment* Temperature: 99.1 F Pulse Rate: 81 Blood Pressure: 127/64 Respiratory Rate: 16 Pulse Ox: 98 Oxygen Delivery Method: Room Air Airway Assessment Mouth opens: >3 cm Mallampati Score: II Teeth Condition: Intact Neck Range of motion (ROM): Full ROM Labs Anesthesia Preop lab: CBC WBC 7.6 K/mm3 (4.4-11.0) 10/27/24 23:20 10/27/24 RBC 4.46 M/mm3 (4.2-5.4) 10/27/24 23:20 10/27/24 Hgb 12.4 g/dL (12.0-15.0) 10/27/24 23:20 10/27/24 Hct 36.9 % (37-47) L 10/27/24 23:20 10/27/24 Plt Count 253 K/mm3 (150-450) 10/27/24 23:20 10/27/24 CHEMISTRY Potassium 3.9 mmol/L (3.3-5.1) 10/27/24 23:20 10/27/24 Sodium 138 mmol/L (133-145) 10/27/24 23:20 10/27/24 BUN 9 mg/dL (4-19) 10/27/24 23:20 10/27/24 Creatinine 0.68 mg/dL (0.70-1.20) L 10/27/24 23:20 10/27/24 Glucose 93 mg/dL (70-99) 10/27/24 23:20 10/27/24 TSH 0.185 uIU/mL (0.300-4.200) L 09/20/24 16:22 09/20/24 COAG HCG, Quant 26133 mIU/mL (<9 non-preg) H 10/27/24 23:20 10/27/24 Tst Clinic Positive 10/27/24 08:04 10/27/24 Pre-Assessment Diagnosis/Proposed Procedure Planned Operative Procedure(s): D&C Anesthesia History Anesthesia History - perianesthesia nurse: Anesthesia History - perianesthesia nurse Hx Hospitalization Any Problems With Anesthesia Cholinesterase deficiency You/Your Family Experience fever (hyperthermia) with Relationship Recent Exposure to Contagious No 10/31/24 14:23 Disease Does patient have nerve stimulator Patient instructed to have device shut off --Does patient have Pacemaker No 10/31/24 14:23 or ICD? When Was Last Pacemaker Check QUESTION #4 FULL TEXT: You/Your Family Experience fever (hyperthermia) with Anesthesia Last Oral Intake Last Oral intake: Last Oral Intake NPO since 13:15 10/31/24 14:23 Meds taken in AM with sips of water? Meds patient instructed to take am of surgery PONV PONV - perianesthesia nurse: PONV - perianesthesia nurse Female HX of Motion Sickness HX of N/V After Surgery Non-Smoker Duration of Surgery greater than 60 minutes Number of Risk Factors PONV Score Height & Weight Height & Weight: Anesthesia: Height & Weight Height 5 ft 7 in 10/31/24 14:23 Weight: 114 kg 10/31/24 14:23 Body Mass Index (BMI) 39.3 10/31/24 14:23 Respiratory Assessment Respiratory Assessment - perianesthesia nurse: Respiratory Tract Infection Hx - perianesthesia nurse Hx Respiratory Tract Infection STOP Sleep Apnea STOP Sleep Apnea - perianesthesia nurse: STOP Sleep Apnea - perianesthesia nurse Hx Hypertension Hx Sleep Apnea CPAP BIPAP Do you snore loudly (louder than talking or can be heard Do you often feel tired/ fatigued/ sleepy during daytime? Has anyone observed you stop breathing during sleep? STOP Results QUESTION #5 FULL TEXT : Do you snore loudly (louder than talking or can be heard through closed doors)? 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 Specify any problems Hx of Preganancy in last 3 Months Nurse Filling Out Transfusion & Questions: Date: Time: Patient unable to answer at this time (ie. confused, unrespo /Reproduction History /Reproductive History - perianesthesia nurse: /Reproductive Hx- perianesthesia nurse Hx Now Gestational Age (in weeks): EDC: Hx Hx Para Hx Section SAB No 10/30/24 14:26 PFSH Medical History PTSD (post-traumatic stress disorder) Depression Anxiety Chronic neck and back pain Fatigue Shortness of breath Home Medications ?Medication ?Instructions ?Recorded ?Last Taken ?Type acetaminophen 325 mg capsule 325 mg PO Q6H PRN pain 07/03/18 Unknown History (Tylenol) magnesium carb,citrate,oxide 500 mg PO DAILY 08/30/24 Unknown History (Magnesium Complex) Lactobacillus acidophilus 1 1,000 mmu cells PO QDAY 10/27/24 Unknown History billion cell capsule (Probiotic Gold Acidophilus) multivitamin no.47-iron fum 27 1 cap PO DAILY 10/27/24 Unknown History mg-folate no.1 1 mg-dha 300 mg capsule (PNV-DHA) Allergy/AdvReac Type Severity Reaction Status Date / Time No Known Allergies Allergy Verified 10/31/24 14:08 Social History adopted: No household members: spouse housing: house number of children: 0 current occupational status: employed 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 coating & painting) pets and animals: Yes (Avoid litterbox) pets and animals: cat(s) and dog(s) history of recent travel: No sexually active: Yes Smoking Status: Never smoker alcohol intake: current alcohol intake frequency: holidays/special occasions only details: Not while substance use type: does not use diet: other well-balanced diet: daily or most days caffeine: Yes Type: coffee Number of servings: 1 eating out: rarely or never during the past year weight has: remained stable what type of physical activity do you participate in: walking frequency: 3-4 times per week duration: 30-45 minutes/day khadar/sikh: None seatbelt use: always do you feel safe at home: Yes additional social history: Yoseph- . 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 Physical Exam Const alert and oriented x3 Resp normal respiratory effort and normal air movement Cardio regular rate and regular rhythm Extremity full ROM Neuro moves all extremities
--- NOTE | 2024-10-31 14:54 | PCM.PRE.AN2 ---
ASA Classification* ASA Classification ASA Classification: 3 Assessment & Plan Anesthesia* Anesthesia Assessment Anesthesia Assessment: Discussed sedation and/or anesthesia options, risks, benefits, and alternatives with patient/parents/legal guardian/POA. Questions invited. The patient/parents/legal guardian/POA seems to understand and agrees to proceed with anesthesia plan. Reviewed the physical assessment, medical history, allergy history and patient home medications list prior to surgery/procedure/anesthetic and documented any changes. Performed airway and anesthesia risk assessments. Anesthesia Type Anesthesia Type: MAC (we discussed MAC, with GA as backup. all patient questions answered) History Source History Obtained from:: Patient and Chart Anesthesia Focused Assessment* Temperature: 99.1 F Pulse Rate: 81 Blood Pressure: 127/64 Respiratory Rate: 16 Pulse Ox: 98 Oxygen Delivery Method: Room Air Airway Assessment Mouth opens: >3 cm Mallampati Score: II Teeth Condition: Intact Neck Range of motion (ROM): Full ROM Labs Anesthesia Preop lab: CBC WBC 7.6 K/mm3 (4.4-11.0) 10/27/24 23:20 10/27/24 RBC 4.46 M/mm3 (4.2-5.4) 10/27/24 23:20 10/27/24 Hgb 12.4 g/dL (12.0-15.0) 10/27/24 23:20 10/27/24 Hct 36.9 % (37-47) L 10/27/24 23:20 10/27/24 Plt Count 253 K/mm3 (150-450) 10/27/24 23:20 10/27/24 CHEMISTRY Potassium 3.9 mmol/L (3.3-5.1) 10/27/24 23:20 10/27/24 Sodium 138 mmol/L (133-145) 10/27/24 23:20 10/27/24 BUN 9 mg/dL (4-19) 10/27/24 23:20 10/27/24 Creatinine 0.68 mg/dL (0.70-1.20) L 10/27/24 23:20 10/27/24 Glucose 93 mg/dL (70-99) 10/27/24 23:20 10/27/24 TSH 0.185 uIU/mL (0.300-4.200) L 09/20/24 16:22 09/20/24 COAG HCG, Quant 81409 mIU/mL (<9 non-preg) H 10/27/24 23:20 10/27/24 Tst Clinic Positive 10/27/24 08:04 10/27/24 Pre-Assessment Diagnosis/Proposed Procedure Planned Operative Procedure(s): D&C Anesthesia History Anesthesia History - scourer: Anesthesia History - scourer Hx Hospitalization Any Problems With Anesthesia Cholinesterase deficiency You/Your Family Experience fever (hyperthermia) with Relationship Recent Exposure to Contagious No 10/31/24 14:23 Disease Does patient have nerve stimulator Patient instructed to have device shut off --Does patient have Pacemaker No 10/31/24 14:23 or ICD? When Was Last Pacemaker Check QUESTION #4 FULL TEXT: You/Your Family Experience fever (hyperthermia) with Anesthesia Last Oral Intake Last Oral intake: Last Oral Intake NPO since 13:15 10/31/24 14:23 Meds taken in AM with sips of water? Meds patient instructed to take am of surgery PONV PONV - scourer: PONV - scourer Female HX of Motion Sickness HX of N/V After Surgery Non-Smoker Duration of Surgery greater than 60 minutes Number of Risk Factors PONV Score Height & Weight Height & Weight: Anesthesia: Height & Weight Height 5 ft 7 in 10/31/24 14:23 Weight: 114 kg 10/31/24 14:23 Body Mass Index (BMI) 39.3 10/31/24 14:23 Respiratory Assessment Respiratory Assessment - scourer: Respiratory Tract Infection Hx - scourer Hx Respiratory Tract Infection STOP Sleep Apnea STOP Sleep Apnea - scourer: STOP Sleep Apnea - scourer Hx Hypertension Hx Sleep Apnea CPAP BIPAP Do you snore loudly (louder than talking or can be heard Do you often feel tired/ fatigued/ sleepy during daytime? Has anyone observed you stop breathing during sleep? STOP Results QUESTION #5 FULL TEXT : Do you snore loudly (louder than talking or can be heard through closed doors)? 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 Specify any problems Hx of Preganancy in last 3 Months Nurse Filling Out Transfusion & Questions: Date: Time: Patient unable to answer at this time (ie. confused, unrespo /Reproduction History /Reproductive History - scourer: /Reproductive Hx- scourer Hx Now Gestational Age (in weeks): EDC: Hx Hx Para Hx Section SAB No 10/30/24 14:26 PFSH Medical History PTSD (post-traumatic stress disorder) Depression Anxiety Chronic neck and back pain Fatigue Shortness of breath Home Medications ?Medication ?Instructions ?Recorded ?Last Taken ?Type acetaminophen 325 mg capsule 325 mg PO Q6H PRN pain 07/03/18 Unknown History (Tylenol) magnesium carb,citrate,oxide 500 mg PO DAILY 08/30/24 Unknown History (Magnesium Complex) Lactobacillus acidophilus 1 1,000 mmu cells PO QDAY 10/27/24 Unknown History billion cell capsule (Probiotic Gold Acidophilus) multivitamin no.47-iron fum 27 1 cap PO DAILY 10/27/24 Unknown History mg-folate no.1 1 mg-dha 300 mg capsule (PNV-DHA) Allergy/AdvReac Type Severity Reaction Status Date / Time No Known Allergies Allergy Verified 10/31/24 14:08 Social History adopted: No household members: spouse housing: house number of children: 0 current occupational status: employed 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) pets and animals: Yes (Avoid litterbox) pets and animals: cat(s) and dog(s) history of recent travel: No sexually active: Yes Smoking Status: Never smoker alcohol intake: current alcohol intake frequency: holidays/special occasions only details: Not while substance use type: does not use diet: other well-balanced diet: daily or most days caffeine: Yes Type: coffee Number of servings: 1 eating out: rarely or never during the past year weight has: remained stable what type of physical activity do you participate in: walking frequency: 3-4 times per week duration: 30-45 minutes/day khadar/faith: None seatbelt use: always do you feel safe at home: Yes additional social history: Yoseph- . 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 Physical Exam Const alert and oriented x3 Resp normal respiratory effort and normal air movement Cardio regular rate and regular rhythm Extremity full ROM Neuro moves all extremities
[2024-10-31] MEDS: Lactated Ringers 1,000 ML 15 ML IV (15:03)
[2024-10-31 15:23] LABS: Hematocrit 38.7 % (37-47); Hemoglobin 13.3 g/dL (12.0-15.0); Mean Corp Hgb Conc 34.4 g/dL (32-36); Mean Corpuscular Volume 81.3 fL (81-99); Mean Platelet Vol. 10.7 fl (6.2-12.0); Platelet Count 322 K/mm3 (150-450); RBC Distribution Width CV 13.4 % (11.6-14.6); RBC Distribution Width SD 39.7 fl (35.1-43.9); Red Blood Count 4.76 M/mm3 (4.2-5.4); White Blood Count 5.8 K/mm3 (4.4-11.0)
--- NOTE | 2024-10-31 15:45 | POC_PTH ---
PATIENT: MARQUIS BARBER LOC: [facility] – [place] U#:[id number] AGE/SX: 28/F ROOM: RE10/31/[address]: Dr. Alesia Steele MD : 1995 BED: DIS: 10/31/2024 SPEC #: [id number] RECD: 10/31/24 18:11 STATUS: NANCY RENeena #: [id number] MARIE: 10/31/24 15:[address]: Alesia Steele DEPT: SURGICAL PATHOLOGY RECD BY: Reinaldo Montiel ENTERED: 11/01/24 10:35 SP TYPE: PROD CONC OTHR DR: Dr. Merrick Mai MD Tissues: A - Product of conception, NOS Procedures: Surgery Specimen Level IV HEADER OPERATION: Dilation and curettage, suction PRE-OP DIAGNOSIS: Missed TISSUE SUBMITTED: A- Products of conception MICROSCOPIC DIAGNOSIS A. Products of conception, dilation and curettage: * Inflamed and degenerating decidua with chorionic villi consistent with intrauterine products of conception MICROSCOPIC DESCRIPTION Slides are reviewed. GROSS DESCRIPTION A. Received in formalin labeled with the patient's name and date of . Designated as products of conception is a 23.4 g, 7.3 x 6.2 x 1.7 cm aggregate of aquino-pink to red soft tissue fragments, blood clot and papilliferous tissue fragments (suspicious for chorionic villi). parts are not present. Retail Department Supervisor sections are submitted in 2 cassettes. [place] 11/01/2024 CPT:87879
--- NOTE | 2024-10-31 15:45 | POC_PTH ---
PATIENT: MARQUIS BARBER [place] [facility] [place][id number] AGE/SX: 28/F ROOM: RE10/31/[address]: Dr. Alesia Steele MD : 1995 BED: DIS: 10/31/2024 SPEC #: [id number] RECD: 10/31/24 18:11 STATUS: NANCY RENeena #: [id number] MARIE: 10/31/24 15:[address]: Alesia Steele DEPT: SURGICAL PATHOLOGY RECD BY: Reinaldo Montiel ENTERED: 11/01/24 10:35 SP TYPE: PROD CONC OTHR DR: Dr. Merrick Mai MD Tissues: A - Product of conception, NOS Procedures: Surgery Specimen Level IV HEADER OPERATION: Dilation and curettage, suction PRE-OP DIAGNOSIS: Missed TISSUE SUBMITTED: A- Products of conception MICROSCOPIC DIAGNOSIS A. Products of conception, dilation and curettage: * Inflamed and degenerating decidua with chorionic villi consistent with intrauterine products of conception MICROSCOPIC DESCRIPTION Slides are reviewed. GROSS DESCRIPTION A. Received in formalin labeled with the patient's name and date of . Designated as products of conception is a 23.4 g, 7.3 x 6.2 x 1.7 cm aggregate of aquino-pink to red soft tissue fragments, blood clot and papilliferous tissue fragments (suspicious for chorionic villi). parts are not present. Police Communications Operator sections are submitted in 2 cassettes. [place] 11/01/2024 CPT:17845
--- NOTE | 2024-10-31 16:07 | PCM.OPRPT ---
Problems Associated Problem List Diagnoses (1) Missed : (2) Supervision of normal first : (3) Obesity affecting : (4) : Procedures Urinary/Genital 52xxx-59xxx: 67588 Trmt of incomplete Ab, any TM Operative Report (Standard) Operative Information Date of Procedure: 10/31/24 Pre-Operative Diagnosis: see problem list comments Post-Operative Diagnosis: same Surgery/Procedure Performed: suction dilation and curettage director channel: No Type of Anesthesia: IV Sedation and Local RN Documented Start/Stop Times: Operation Date: 10/31/24 15:45 Case Time Into Pre-Op 10/31/24 14:10 Out of Pre-Op 10/31/24 15:40 Anesthesia Start 10/31/24 15:43 Into Room 10/31/24 15:43 Procedure Start 10/31/24 16:00 Procedure Start Time: 16:00 Procedure Stop Time: 16:08 Select all DRAINS/GRAFTS/IMPLANTS that apply: None Estimated Blood Loss: 50 Specimen collected: Yes Description of specimen(s) removed: retained POC Description of surgery: Patient was taken to the operating room and placed under MAC local anesthesia. She was prepped and draped in the normal sterile fashion the dorsal lithotomy position. Bladder was drained of clear urine and anterior lip of the cervix was grasped and the uterus sounded to 9cm. Cervix was progressively dilated to allow passage of a 9mm suction curette. Progressive passes were made removing the retained products of conception without complication. Sharp curettage confirmed complete removal of the retained products. All instruments were removed from the vagina and excellent hemostasis was noted and the patient was taken to recovery in stable condition. Surgical Findings: no fht seen no color doppler flow Complications Complications: No
--- NOTE | 2024-10-31 16:07 | PCM.OPRPT ---
Problems Associated Problem List Diagnoses (1) Missed : (2) Supervision of normal first : (3) Obesity affecting : (4) : Procedures Urinary/Genital 52xxx-59xxx: 41505 Trmt of incomplete Ab, any TM Operative Report (Standard) Operative Information Date of Procedure: 10/31/24 Pre-Operative Diagnosis: see problem list comments Post-Operative Diagnosis: same Surgery/Procedure Performed: suction dilation and curettage technology officer: No Type of Anesthesia: IV Sedation and Local RN Documented Start/Stop Times: Operation Date: 10/31/24 15:45 Case Time Into Pre-Op 10/31/24 14:10 Out of Pre-Op 10/31/24 15:40 Anesthesia Start 10/31/24 15:43 Into Room 10/31/24 15:43 Procedure Start 10/31/24 16:00 Procedure Start Time: 16:00 Procedure Stop Time: 16:08 Select all DRAINS/GRAFTS/IMPLANTS that apply: None Estimated Blood Loss: 50 Specimen collected: Yes Description of specimen(s) removed: retained POC Description of surgery: Patient was taken to the operating room and placed under MAC local anesthesia. She was prepped and draped in the normal sterile fashion the dorsal lithotomy position. Bladder was drained of clear urine and anterior lip of the cervix was grasped and the uterus sounded to 9cm. Cervix was progressively dilated to allow passage of a 9mm suction curette. Progressive passes were made removing the retained products of conception without complication. Sharp curettage confirmed complete removal of the retained products. All instruments were removed from the vagina and excellent hemostasis was noted and the patient was taken to recovery in stable condition. Surgical Findings: no fht seen no color doppler flow Complications Complications: No
--- NOTE | 2024-10-31 16:17 | PCM.POST.ANE ---
Anesthesia: Postop Eval I Current Vital Signs Temperature: 97.5 F Pulse Rate: 88 Blood Pressure: 115/77 Respiratory Rate: 12 Pulse Ox: 97 Oxygen Delivery Method: Room Air Assessment Airway patent: Yes Spontaneous unlabored respirations: Yes Mental status: Awake nausea: No Vomiting: No Anesthesia Complication: No Fluid Hydration Crystalloid volume administer (ml): 800 Total IV fluid infused: 800 Progress Note Anesthesia document: Postop Eval 1 completed: Yes
--- NOTE | 2024-10-31 17:00 | DCINST_ITS ---
Discharge Instructions Diet Discharge Diet: No restrictions DC O2, CPAP, BIPAP needs Home O2 Discharge instructions: No Dressing / Incision Discharge Activity: Return to Normal Activity, May Shower and May Take a Tub Bath (after 1 week) May resume sexual activity in: 1-2 weeks Weight Bearing Status: Weight bearing as tolerated Lifting Restrictions: none Dressing / Incision Call your doctor if you observe: Fever of 101 or Higher, Using more than 1 pad per hour, Shortness of breath and Uncontrolled pain Follow Up Care Please Follow Up With: Alesia Steele MD When: Call [phone] to schedule appointment. Test Results: Test results from this visit will be discussed in further detail at your follow- up appointment, if applicable. Discharge Plan Admission Attending Provider: Alesia Steele Primary Care Provider: Merrick Mai Instructions Print Language: Panamanian Discharge Orders/Prescriptions Prescriptions: No Action acetaminophen [Tylenol] 325 mg capsule 325 mg PO Q6H PRN (Reason: pain) Magnesium Complex 300 mg magnesium tablet 500 mg PO DAILY PNV-DHA 27 mg iron-1 mg -300 mg capsule 1 cap PO DAILY Probiotic Gold Acidophilus 1 billion cell capsule 1,000 mmu cells PO QDAY Referrals / Follow Up: Merrick Mai MD [Primary Care Provider] - Disposition Disposition (needs filled in before D/C Order can be placed): Home, Self Care
--- NOTE | 2024-10-31 18:18 | POSTOPAN2_ITS ---
Anesthesia Postop Eval I Sum Postop Eval Completion status Anesthesia document: Postop Eval 1 completed: Yes Anesthesia Postop Eval I Summary Anesthesia Postop Eval I Summary: Anesthesia Postop Eval I: Assessment Summary Airway patent Yes 10/31/24 16:18 CIRCLE CUTTING SAW OPERATOR.SHOF Spontaneous unlabored Yes 10/31/24 16:18 CIRCLE CUTTING SAW OPERATOR.SHOF respirations Mental status Awake 10/31/24 16:18 CIRCLE CUTTING SAW OPERATOR.SHOF nausea No 10/31/24 16:18 CIRCLE CUTTING SAW OPERATOR.SHOF Vomiting No 10/31/24 16:18 CIRCLE CUTTING SAW OPERATOR.SHOF Anesthesia Postop Eval I: Fluid Summary Crystalloid volume administer 800 10/31/24 16:18 CIRCLE CUTTING SAW OPERATOR.SHOF (ml) Colloids volume administered ( ml) Blood Product volume administered (ml) Total IV fluid infused 800 10/31/24 16:18 CIRCLE CUTTING SAW OPERATOR.SHOF Anesthesia Postop Eval I: Summary Notes Anesthesia Complication No 10/31/24 16:18 CIRCLE CUTTING SAW OPERATOR.SHOF Anesthesia Complication Comment: Post-operative progress note Anesthesia: Postop Eval II Evaluation Mental status: Awake and Calm Pain Level: 3 nausea: No Vomiting: No Complications Anesthesia Complication: No
--- NOTE | 2024-10-31 18:18 | POSTOPAN2_ITS ---
Anesthesia Postop Eval I Sum Postop Eval Completion status Anesthesia document: Postop Eval 1 completed: Yes Anesthesia Postop Eval I Summary Anesthesia Postop Eval I Summary: Anesthesia Postop Eval I: Assessment Summary Airway patent Yes 10/31/24 16:18 PACKING INSPECTOR.SHOF Spontaneous unlabored Yes 10/31/24 16:18 PACKING INSPECTOR.SHOF respirations Mental status Awake 10/31/24 16:18 PACKING INSPECTOR.SHOF nausea No 10/31/24 16:18 PACKING INSPECTOR.SHOF Vomiting No 10/31/24 16:18 PACKING INSPECTOR.SHOF Anesthesia Postop Eval I: Fluid Summary Crystalloid volume administer 800 10/31/24 16:18 PACKING INSPECTOR.SHOF (ml) Colloids volume administered ( ml) Blood Product volume administered (ml) Total IV fluid infused 800 10/31/24 16:18 PACKING INSPECTOR.SHOF Anesthesia Postop Eval I: Summary Notes Anesthesia Complication No 10/31/24 16:18 PACKING INSPECTOR.SHOF Anesthesia Complication Comment: Post-operative progress note Anesthesia: Postop Eval II Evaluation Mental status: Awake and Calm Pain Level: 3 nausea: No Vomiting: No Complications Anesthesia Complication: No
--- NOTE | 2024-10-31 18:18 | PCM.POSTANE2 ---
Anesthesia Postop Eval I Sum Postop Eval Completion status Anesthesia document: Postop Eval 1 completed: Yes Anesthesia Postop Eval I Summary Anesthesia Postop Eval I Summary: Anesthesia Postop Eval I: Assessment Summary Airway patent Yes 10/31/24 16:18 SOLVENT [email or web address].SHOF Spontaneous unlabored Yes 10/31/24 16:18 SOLVENT MIXER.SHOF respirations Mental status Awake 10/31/24 16:18 SOLVENT MIXER.SHOF nausea No 10/31/24 16:18 SOLVENT MIXER.SHOF Vomiting No 10/31/24 16:18 SOLVENT [email or web address].SHOF Anesthesia Postop Eval I: Fluid Summary Crystalloid volume administer 800 10/31/24 16:18 SOLVENT MIXER.SHOF (ml) Colloids volume administered ( ml) Blood Product volume administered (ml) Total IV fluid infused 800 10/31/24 16:18 SOLVENT MIXER.SHOF Anesthesia Postop Eval I: Summary Notes Anesthesia Complication No 10/31/24 16:18 SOLVENT MIXER.SHOF Anesthesia Complication Comment: Post-operative progress note Anesthesia: Postop Eval II Evaluation Mental status: Awake and Calm Pain Level: 3 nausea: No Vomiting: No Complications Anesthesia Complication: No
--- NOTE | 2024-10-31 18:18 | PCM.POSTANE2 ---
Anesthesia Postop Eval I Sum Postop Eval Completion status Anesthesia document: Postop Eval 1 completed: Yes Anesthesia Postop Eval I Summary Anesthesia Postop Eval I Summary: Anesthesia Postop Eval I: Assessment Summary Airway patent Yes 10/31/24 16:18 AGRICULTURAL MECHANIC.SHOF Spontaneous unlabored Yes 10/31/24 16:18 AGRICULTURAL MECHANIC.SHOF respirations Mental status Awake 10/31/24 16:18 AGRICULTURAL MECHANIC.SHOF nausea No 10/31/24 16:18 AGRICULTURAL MECHANIC.SHOF Vomiting No 10/31/24 16:18 AGRICULTURAL MECHANIC.SHOF Anesthesia Postop Eval I: Fluid Summary Crystalloid volume administer 800 10/31/24 16:18 AGRICULTURAL MECHANIC.SHOF (ml) Colloids volume administered ( ml) Blood Product volume administered (ml) Total IV fluid infused 800 10/31/24 16:18 AGRICULTURAL MECHANIC.SHOF Anesthesia Postop Eval I: Summary Notes Anesthesia Complication No 10/31/24 16:18 AGRICULTURAL MECHANIC.SHOF Anesthesia Complication Comment: Post-operative progress note Anesthesia: Postop Eval II Evaluation Mental status: Awake and Calm Pain Level: 3 nausea: No Vomiting: No Complications Anesthesia Complication: No
== END 2024-10-31 17:30 | disposition home or self-care (01) ==
LOC: SDC 13:40 → AC 13:41
PROVIDERS: PCP Family Medicine; Referring Provider Obstetrics & Gynecology; Visit Provider Obstetrics & Gynecology
PROC: (CPT 59812; principal; 2024-10-31 15:30)
DX: O02.1 Missed abortion (principal); E66.9 Obesity, unspecified; O99.211 Obesity complicating pregnancy, first trimester
CPT/HCPCS: 59812; 01965; 85027; 86850; 86900; 86901; 88305; J2405

== ENCOUNTER → 2024-11-15 | Outpatient (CLI) | payer OTHER, SELFPAY | END | disposition home or self-care (01) | PROVIDERS: PCP Family Medicine; Referring Provider Obstetrics & Gynecology; Visit Provider Obstetrics & Gynecology | DX: O03.9 Complete or unspecified spontaneous abortion without complication (principal); Z13.29 Encounter for screening for other suspected endocrine disorder | CPT/HCPCS: 36415; 84439; 84443 ==

== ENCOUNTER → 2025-01-09 | Outpatient (CLI) | payer OTHER, SELFPAY ==
[2025-01-09 18:17] LABS: hCG Titer Quant., Serum 19036 mIU/mL (<9 non-preg)
== END | disposition home or self-care (01) ==
PROVIDERS: PCP Family Medicine; Referring Provider Obstetrics & Gynecology; Visit Provider Obstetrics & Gynecology
DX: N91.2 Amenorrhea, unspecified (principal)
CPT/HCPCS: 36415; 84702

== ENCOUNTER → 2025-01-11 | Outpatient (CLI) | payer OTHER, SELFPAY ==
[2025-01-11 18:33] LABS: hCG Titer Quant., Serum 27546 mIU/mL (<9 non-preg)
== END | disposition home or self-care (01) ==
PROVIDERS: PCP Family Medicine; Referring Provider Obstetrics & Gynecology; Visit Provider Obstetrics & Gynecology
DX: N91.2 Amenorrhea, unspecified (principal)
CPT/HCPCS: 36415; 84702

== ENCOUNTER → 2025-01-22 | Outpatient (CLI) | payer OTHER, SELFPAY ==
--- NOTE | 2025-01-22 16:27 | US_ITS ---
PROCEDURE: TRANSVAGINAL W/PREG US 01/22/2025 REASON FOR EXAM: DATING US TECHNIQUE: Procedure Code: [id number] Modality: US Procedure: TRANSVAGINAL W/PREG US COMPARISON: None FINDINGS: Comments: LMP: December 01, 2024. Number of Gestational Sacs: 1 Gestational Sac Shape: Normal Number of Fetuses: 1 Heart Rate: 174 beats per minute (average) Yolk Sac: Present and unremarkable. Placenta: Presently not well-visualized Amniotic Fluid Volume: Subjectively normal for gestational age. Uterine Abnormalities: Maternal uterus is unremarkable. Ovaries / Adnexa: 2.3 cm 2.6 cm x 2.2 cm cyst in the right ovary. 1.6 cm 1.7 cm 1.2 cm dominant follicle in the left ovary. DIMENSIONS: Parameter Measurement / EGA [place] Rump Length: 1.3 cm/7 weeks and 4 days Gestational Sac: 2.9 cm/8 weeks and 0 days Yolk Sac: 3 mm/ ESTIMATED GESTATIONAL AGE: By Ultrasound: 7 weeks and 6 days By LMP: 7 weeks and 3 days ESTIMATED DATE OF DELIVERY: By Ultrasound: September 04, 2021 By LMP: September 07, 2025 US/Transvaginal w/Preg US IMPRESSION: Single live intrauterine gestation with a mean gestational age of 7 weeks and 6 days. 2.3 cm 2.6 cm 2.2 cm right ovarian cyst. Dominant follicle seen in the left ovary. Reading Location: [place] [id number]
== END | disposition home or self-care (01) ==
LOC: US 16:23
PROVIDERS: PCP Family Medicine; Referring Provider Nurse Practitioner Women's Health; Visit Provider Nurse Practitioner Women's Health
DX: Z34.90 Encounter for supervision of normal pregnancy, unspecified, unspecified trimester (principal); N91.1 Secondary amenorrhea
CPT/HCPCS: 76817

== ENCOUNTER → 2025-02-07 | Outpatient (CLI) | payer OTHER, SELFPAY ==
[2025-02-10 03:07] LABS: Chlamydia By Nucleic Acid AMP Negative (Negative); Gonococcus By Nucleic Acid AMP Negative (Negative)
[2025-02-13 16:09] LABS: HPV APTIMA, High Risk Negative (Negative)
== END | disposition home or self-care (01) ==
LOC: LABSPEC 15:28
PROVIDERS: PCP Family Medicine; Visit Provider Obstetrics & Gynecology
DX: O09.90 Supervision of high risk pregnancy, unspecified, unspecified trimester (principal); Z12.4 Encounter for screening for malignant neoplasm of cervix; Z3A.00 Weeks of gestation of pregnancy not specified
CPT/HCPCS: 87086; 87491; 87591; 87624; 88175; G0145

== ENCOUNTER → 2025-02-19 | Outpatient (CLI) | payer OTHER, SELFPAY ==
[2025-02-19 17:01] LABS: Hematocrit 34.9 % (37-47); Hemoglobin 12.1 g/dL (12.0-15.0); Immature Granulocytes Count 0.030 X10^3/uL (0.0-0.0); Mean Corp Hgb Conc 34.7 g/dL (32-36); Mean Corpuscular Volume 82.1 fL (81-99); Mean Platelet Vol. 10.5 fl (6.2-12.0); NRBC Flagged by Analyzer 0 % (0-5); Platelet Count 293 K/mm3 (150-450); RBC Distribution Width CV 12.8 % (11.6-14.6); RBC Distribution Width SD 38.4 fl (35.1-43.9); Red Blood Count 4.25 M/mm3 (4.2-5.4); White Blood Count 7.1 K/mm3 (4.4-11.0)
[2025-02-19 18:22] LABS: HIV Nonreactive (Nonreactive); Hepatitis B Surface Antigen Nonreactive (Nonreactive); Hepatitis C Antibody Nonreactive (Nonreactive); Syphilis Antibodies Nonreactive (Nonreactive)
== END | disposition home or self-care (01) ==
PROVIDERS: PCP Family Medicine; Visit Provider Obstetrics & Gynecology
DX: O09.90 Supervision of high risk pregnancy, unspecified, unspecified trimester (principal); Z31.430 Encounter of female for testing for genetic disease carrier status for procreative management; Z3A.00 Weeks of gestation of pregnancy not specified
CPT/HCPCS: 36415; 83036; 85025; 86703; 86762; 86780; 86803; 86850; 86900; 86901; 87340